=== PATIENT | female | born 1965 | race Caucasian/White ===

== ENCOUNTER 2016-06-11 12:30 | Inpatient (IN) | payer MEDICARE, MEDICAID ==
[2016-06-11] MEDS ORDERED: Sodium Chloride 0.9% 1,000 ML IV ONE (12:38)
--- NOTE | 2016-06-11 12:45 | ED Physician Chart ---
Chief Complaint/HPI - Patient Information Date Seen:: 06/11/16 Time Seen:: 12:31 Chief Complaint:: twitching History of Present Illness:: 51-year-old female with history of intellectual retardation, brought in from care facility with acute, worsening, severe, twitching of the body with seizure- like activity. Has had similar symptoms in the past about one year ago. Takes gabapentin and lamotrigine for seizures. History limited as patient is averbal due to her underlying mental retardation History provided by caregiver Allergies:: Allergies Allergy/AdvReac Type Severity Reaction Status Date / Time cats Allergy UNKNOWN Uncoded 07/15/15 15:20 caraballo tomatoes Allergy UNKNOWN Uncoded 07/15/15 15:20 weeds Allergy UNKNOWN Uncoded 07/15/15 15:20 Historian:: Other (caregiver) Review:: Nurse's Note Reviewed, Transfer documents Reviewed Review of Systems - Review of Systems Other: Complete system review otherwise unremarkable except as noted in HPI. Past Medical History - Past Medical History Past Medical History: Seizures, Other (profound intellectual disability, autism) Family Medical History - Family Member Mother History Unknown: Yes Physical Exam - Physical Examination Other:: INITIAL VITAL SIGNS: Reviewed by me GENERAL: Alert, averbal, intellectually challenged. Moderate distress due to seizure-like activity. HEAD: Head is normocephalic and atraumatic EYES: EOMI. . No scleral icterus. No conjunctival injection ENT: Moist mucous membranes. NECK: Supple. No masses. Full range of motion RESPIRATORY: No tachypnea. Clear breath sounds bilaterally. No wheezing, rales, or rhonchi CV: Regular rate and rhythm. No murmurs, rubs, or gallops ABDOMEN: Soft, non-distended, non-tender. No guarding. No rebound. No masses. EXTREMITIES: No deformity. No cyanosis. No edema. SKIN: Warm and dry. No obvious rashes. NEUROLOGIC: Alert and oriented. Face is symmetric. Speech is normal. Moves all extremities equally. Motor and sensory distally intact. Labs/Radiology/EKG Results - EKG Interpretations Comments:: 12-lead EKG Interpretation by Randolph Yap MD: Sinus tachycardia with ventricular rate of 101 beats per minute Normal axis Normal intervals No acute ST or T wave changes. No obvious STEMI ED Septic Shock - . Is Septic Shock (SBP<90, OR Lactate>4 mmol\L) present?: No Reassessment (Disposition) - Reassessment Reassessment:: Patient has seizure disorder. She's been having increasing seizure activity. No apparent source of infection or reasoning why this would be increasing. At this point in the emergency department we are unable to completely control her seizure activity and also have no apparent reason why this activity would've increased. Just case with Dr. Hackett who will admit the patient for further workup and treatment. Reassessment Condition:: Improved - Diagnosis Diagnosis:: Seizures, status epilepticus - Patient Disposition Discharge/Transfer:: Acute Care w/in this hosp Admitted to:: Telemetry Admitting Medical Physician:: Leighton Hackett Time:: 14:59 Condition at Disposition:: Stable ED Discharge Plan - Patient Disposition Admit/Discharge/Transfer: Acute Care w/in this hosp
[2016-06-11 12:52] LABS: % BASOPHILS 0.1 % (0.0-2.0); % EOSINOPHILS 3.5 % (0.0-5.0); % LYMPHOCYTES 24.1 % (20.0-50.0); % MONOCYTES 9.6 % (2.0-10.0); % NEUTROPHILS 62.7 % (40.0-80.0); HEMATOCRIT 41.5 % (35.0-45.0); HEMOGLOBIN 14.2 gm/dL (11.7-15.5); MEAN CELL VOLUME 99.8 fl (81-100); MEAN CORPUSCULAR HEMOGLOBIN 34.2 pg (27.0-31.0); MEAN CORPUSCULAR HGB CONC 34.3 pg (28.0-36.0); MEAN PLATELET VOLUME 8.5 fl; NEUTROPHILE ABSOLUTE 3.4 Th/cmm (1.8-8.0); PLATELET COUNT 192 Th/cmm (150-400); RED BLOOD COUNT 4.16 Mil/cmm (3.80-5.10); RED CELL DISTRIBUTION WIDTH 12.9 % (11.5-20.0); WHITE BLOOD COUNT 5.4 Th/cmm (4.8-10.8)
[2016-06-11 13:04] LABS: INR 1.01 (0.5-1.4); PROTHROMBIN TIME (TEST) 10.5 SECONDS (9.5-11.5)
[2016-06-11 13:09] LABS: ALB/GLOB RATIO 1.3 (1.0-1.8); ALKALINE PHOSPHATASE 106 U/L (34-104); ANION GAP 9.5 (7.0-16.0); BILIRUBIN,TOTAL 0.4 mg/dL (0.3-1.0); BUN - UREA NITROGEN 32 mg/dL (7-25); CALCIUM SERUM 9.9 mg/dL (8.6-10.3); CARBON DIOXIDE 31.3 mEq/L (21.0-31.0); CHLORIDE 101 mEq/L (98-107); GLUCOSE 87 mg/dL (70-105); POTASSIUM SERUM 3.8 mEq/L (3.5-5.1); SGOT 27 U/L (13-39); SGPT/ALT 24 U/L (7-52); SODIUM SERUM 138 mEq/L (136-145)
[2016-06-11 13:53] LABS: URINE BILIRUBIN NEGATIVE (NEGATIVE); URINE BLOOD SMALL (NEGATIVE); URINE COLOR YELLOW; URINE GLUCOSE (UA) NEGATIVE (NEGATIVE); URINE KETONE NEGATIVE (NEGATIVE); URINE PROTEIN NEGATIVE (NEGATIVE); URINE UROBILINOGEN 0.2 E.U./dL (0.2 - 1.0)
[2016-06-11 13:54] LABS: URINE AMORPHOUS SEDIMENT FEW PHOSPHATES (NONE SEEN); URINE BACTERIA FEW /hpf (NONE SEEN); URINE EPITHELIAL CELLS RARE /lpf (FEW); URINE RBC 0-2 /hpf (0-5); URINE WBC 0-2 /hpf (0-5)
[2016-06-11] MEDS ORDERED: Hydrocodone/APAP 5mg/325mg Tab PO PRN (14:45)
[2016-06-11] MEDS ORDERED: Promethazine DM 6.25/15mg-5mL 5 ML SYR PO PRN (14:45)
[2016-06-11] MEDS: Calcium Carb/Vit D 500 mg/200 U Tab PO SCH (21:08)
[2016-06-11] MEDS: Benztropine 1 MG TAB PO SCH (21:08)
--- NOTE | 2016-06-11 21:39 | Admit Criteria Form ---
Admit Criteria Forms - Admit Criteria Diagnosis: SEIZURE Clinical Indications for Admission to Inpatient Care (Place 'X' for any and all applicable criteria): Admission is indicated for seizure and ANY ONE of the following(1)(2)(3)(4)(5): [ ]I. Inpatient admission required rather than observation care (Also use Seizure: Observation Care Criteria as appropriate) because of ANY ONE of the following: [ ]a) Altered mental status that is severe or persistent [ ]b) New focal neurologic deficit that is severe or persistent [ ]c) Metabolic disorder (eg, hypoglycemia, hyponatremia) that is severe or persistent [ ]d) Recurrent seizure [ ]e) Outpatient antiseizure regimen cannot be established (eg , patient cannot tolerate medication, initiation requires inpatient care) [ ]f) Need for ongoing intravenous infusion of antiseizure medication [ ]g) Cardiac arrhythmias of immediate concern [ ]h) Cerebral bleeding, hydrocephalus, or vasospasm monitoring (14) [ ]i) Increased intracranial pressure or cerebral edema monitoring (15) [ ]j) Other treatment or monitoring requiring inpatient admission [X]II. Status epilepticus [A] or repetitive seizures not controlled with emergent treatment (6)(8) [ ]III. Brain disorder (eg, tumor, edema, and hydrocephalus) that requiring monitoring or intervention available only at inpatient level of care. [ ]IV. Brain insult (eg, severe trauma, stroke, drug toxicity, or withdrawal) that requires monitoring or intervention available only at inpatient level of care (10)(11) Extended stay beyond goal length of stay may be needed for (22) [ ]a) Complications of status epilepticus [ ]b) Refractory status epilepticus [ ]c) Etiology-specific therapy for conditions such as MEDICAL BILLER/CODER infection, head injury,eclampsia, severe metabolic abnormalities, and brain tumor [ ]d) Residual neurologic damage, [ ]e) Initiation of significant change to anticonvulsant treatment [ ]f) Older patients (65 years or older) [ ]g) Patient requiring intubation (eg, to protect airway) The original [facility] [employer] content created by [facility] [employer] has been revised. The portions of the content which have been revised are identified through the use of italic text or in bold, and [facility] [employer] has neither reviewed nor approved the modified material. All other unmodified content is copyright [facility]. Please see references footnoted in the original [facility] edition 2016 Admit Criteria Met?: Yes
[2016-06-12] MEDS: Levothyroxine 0.025 Mg Tab PO SCH (06:43)
[2016-06-12] MEDS: Calcium Carb/Vit D 500 mg/200 U Tab PO SCH ×3 (08:08→21:01)
[2016-06-12] MEDS: Benztropine 1 MG TAB PO SCH ×3 (08:09→21:00)
[2016-06-12] MEDS ORDERED: Multivitamin w/ Minerals Tab PO SCH (09:00)
--- NOTE | 2016-06-12 23:25 | History & Physical ---
HISTORY OF PRESENT ILLNESS: This is a 51-year-old female patient. The patient is known to have history of multiple problems. She came from a care facility with worsening of twitching of the body, seizure-like activity, was admitted for status epilepticus. The patient is known to have history of mental delay. The patient is also known to have history of multiple ____ problems. The patient is on Seroquel, is also on ____ and also on lorazepam, and the patient was seen in the Emergency Room, was admitted and was given Ativan. REVIEW OF SYSTEMS: Difficult to obtain. FAMILY HISTORY: Unremarkable. PHYSICAL EXAMINATION: GENERAL: The patient is alert, nonverbal, intellectually challenged. HEAD: Normal. ENT: Normal. NECK: Supple. Nontender. LUNGS: Clear. CARDIOVASCULAR SYSTEM: S1, S2 heard. ABDOMEN: Soft. Bowel sounds are heard. LABORATORY DATA: EKG showed sinus tachycardia. DIAGNOSES: Seizures, status epilepticus, history of psych disorder, and history of mental delay. PLAN: The patient is being admitted. I will go ahead and continue Ativan and her psych medications, and I will have psychiatrist see the patient and also I will have neurologist, Dr. Cole, see the patient, and I will follow the patient. [facility]# [phone] [id number]
[2016-06-13] MEDS: Levothyroxine 0.025 Mg Tab PO SCH (06:49)
--- NOTE | 2016-06-13 08:29 | General Progress Note ---
Subjective - Review of Systems Service Date: 06/13/16 Subjective: pt is confused agitated no siezures Objective - Results Result Diagrams: 06/11/16 12:40 06/11/16 12:40 Recent Labs: Laboratory Last Values WBC 5.4 Th/cmm (4.8-10.8) 06/11/16 12:40 RBC 4.16 Mil/cmm (3.80-5.10) 06/11/16 12:40 Hgb 14.2 gm/dL (11.7-15.5) 06/11/16 12:40 Hct 41.5 % (35.0-45.0) 06/11/16 12:40 MCV 99.8 fl (81-100) 06/11/16 12:40 MCH 34.2 pg (27.0-31.0) H 06/11/16 12:40 MCHC Differential 34.3 pg (28.0-36.0) 06/11/16 12:40 RDW 12.9 % (11.5-20.0) 06/11/16 12:40 Plt Count 192 Th/cmm (150-400) 06/11/16 12:40 MPV 8.5 fl 06/11/16 12:40 Neutrophils % 62.7 % (40.0-80.0) 06/11/16 12:40 Lymphocytes % 24.1 % (20.0-50.0) 06/11/16 12:40 Monocytes % 9.6 % (2.0-10.0) 06/11/16 12:40 Eosinophils % 3.5 % (0.0-5.0) 06/11/16 12:40 Basophils % 0.1 % (0.0-2.0) 06/11/16 12:40 PT 10.5 SECONDS (9.5-11.5) 06/11/16 12:40 INR 1.01 (0.5-1.4) 06/11/16 12:40 PTT (Actin FS) 22.7 SECONDS (26.0-38.0) L 06/11/16 12:40 Sodium 138 mEq/L (136-145) 06/11/16 12:40 Potassium 3.8 mEq/L (3.5-5.1) 06/11/16 12:40 Chloride 101 mEq/L (98-107) 06/11/16 12:40 Carbon Dioxide 31.3 mEq/L (21.0-31.0) H 06/11/16 12:40 Anion Gap 9.5 (7.0-16.0) 06/11/16 12:40 BUN 32 mg/dL (7-25) H 06/11/16 12:40 Creatinine 1.0 mg/dL (0.6-1.2) 06/11/16 12:40 Est GFR ( Amer) > 60.0 ml/min (>90) 06/11/16 12:40 Est GFR (Non-Af Amer) > 60.0 ml/min 06/11/16 12:40 BUN/Creatinine Ratio 32.0 06/11/16 12:40 Glucose 87 mg/dL (70-105) 06/11/16 12:40 Whole Bld Lactic Acid 0.95 mmol/L (0.60-1.99) 06/11/16 12:40 Calcium 9.9 mg/dL (8.6-10.3) 06/11/16 12:40 Total Bilirubin 0.4 mg/dL (0.3-1.0) 06/11/16 12:40 AST 27 U/L (13-39) 06/11/16 12:40 ALT 24 U/L (7-52) 06/11/16 12:40 Alkaline Phosphatase 106 U/L (34-104) H 06/11/16 12:40 Creatine Kinase 55 U/L (30-223) 06/11/16 12:40 Total Protein 8.1 gm/dL (6.0-8.3) 06/11/16 12:40 Albumin 4.5 gm/dL (3.7-5.3) 06/11/16 12:40 Globulin 3.6 gm/dL 06/11/16 12:40 Albumin/Globulin Ratio 1.3 (1.0-1.8) 06/11/16 12:40 Urine Source CATH 06/11/16 13:00 Urine Color YELLOW 06/11/16 13:00 Urine Clarity HAZY (CLEAR) 06/11/16 13:00 Urine pH 7.0 06/11/16 13:00 Ur Specific Patriot 1.020 (1.005-1.030) 06/11/16 13:00 Urine Protein NEGATIVE mg/dL (NEGATIVE) 06/11/16 13:00 Urine Glucose (UA) NEGATIVE mg/dL (NEGATIVE) 06/11/16 13:00 Urine Ketones NEGATIVE mg/dL (NEGATIVE) 06/11/16 13:00 Urine Blood SMALL (NEGATIVE) H 06/11/16 13:00 Urine Nitrate NEGATIVE (NEGATIVE) 06/11/16 13:00 Urine Bilirubin NEGATIVE (NEGATIVE) 06/11/16 13:00 Urine Urobilinogen 0.2 E.U./dL (0.2 - 1.0) 06/11/16 13:00 Ur Leukocyte Esterase NEGATIVE (NEGATIVE) 06/11/16 13:00 Urine RBC 0-2 /hpf (0-5) 06/11/16 13:00 Urine WBC 0-2 /hpf (0-5) 06/11/16 13:00 Ur Epithelial Cells RARE /lpf (FEW) 06/11/16 13:00 Amorphous Sediment FEW PHOSPHATES (NONE SEEN) 06/11/16 13:00 Urine Bacteria FEW /hpf (NONE SEEN) 06/11/16 13:00 - Physical Exam Vitals and I&O: Vital Signs Temp 98.5 F 06/13/16 04:00 Pulse 65 06/13/16 04:00 Resp 18 06/13/16 04:00 BP 124/74 06/13/16 04:00 Pulse Ox 92 06/13/16 04:00 Intake & Output 06/12/16 06/13/16 06/13/16 18:59 06:59 18:59 Intake Total 400 240 Output Total 0 Balance 400 240 Intake: Oral 400 240 Output: Stool 0 Other: # Voids 7 2 # Bowel Movements 0 Active Medications: Current Medications Acetaminophen (Tylenol) 650 mg PO Q6H PRN PRN Reason: FEVER >100.1 Stop: 08/11/16 23:52 Acetaminophen/Hydrocodone Bitart (Mina 5mg/325mg) 1 tab PO Q4H PRN PRN Reason: PAIN Stop: 08/10/16 14:44 Bacitracin (Baciquent) 1 appl TP DAILY PRN PRN Reason: SKIN INFECTION Stop: 08/10/16 14:44 Benztropine Mesylate (Cogentin) 1 mg PO TID DIPTI Stop: 08/10/16 20:59 Last Admin: 06/12/16 21:00 Dose: 1 mg Betamethasone Dipropionate (Betamethasone Dip 0.05% Cream) 1 appl TP BID PRN PRN Reason: Rash Stop: 08/10/16 14:44 Calcium/Vitamin D (Oscal W/Vitamin D) 1 tab PO TID [facility] Stop: 08/10/16 20:59 Last Admin: 06/12/16 21:01 Dose: 1 tab Chlorpromazine (Thorazine) 25 mg PO BID DIPTI PRN Reason: Protocol Stop: 08/10/16 16:59 Clotrimazole (Lotrimin 1% Cream) 1 appl TP BID PRN PRN Reason: SKIN INFECTION Stop: 08/10/16 14:44 Desmopressin Acetate (Ddavp) 0.2 mg PO TID DIPTI Stop: 08/10/16 20:59 Last Admin: 06/12/16 21:02 Dose: 0.2 mg Diphenhydramine HCl (Benadryl) 100 mg PO QPM DIPTI Stop: 08/10/16 16:59 Last Admin: 06/11/16 17:38 Dose: Not Given Fluvoxamine Maleate (Luvox) 100 mg PO QPM DIPTI Stop: 08/10/16 16:59 Gabapentin (Neurontin) 800 mg PO TID [facility] Stop: 08/10/16 20:59 Last Admin: 06/12/16 21:03 Dose: 800 mg Lamotrigine (Lamictal) 200 mg PO BID [facility] Stop: 08/10/16 16:59 Last Admin: 06/12/16 16:19 Dose: 200 mg Levothyroxine Sodium (Synthroid) 0.025 mg PO QDAC [facility] Stop: 08/11/16 07:29 Last Admin: 06/13/16 06:49 Dose: 0.025 mg Loperamide HCl (Imodium) 2 mg PO Q2H PRN PRN Reason: Loose Stools Stop: 08/10/16 14:44 Lorazepam (Ativan) 1 mg IVP Q4HR PRN; Protocol PRN Reason: Seizure Stop: 08/10/16 14:43 Last Admin: 06/12/16 03:02 Dose: 1 mg Lorazepam (Ativan) 1 mg PO HS PRN; Protocol PRN Reason: Anxiety Stop: 08/11/16 23:48 Promethazine HCl/Dextromethorphan (Phenergan Dm 6.25/15mg-5 Ml) 5 ml PO BID PRN PRN Reason: Cough Stop: 08/10/16 14:44 Quetiapine Fumarate (Seroquel) 200 mg PO BID DIPTI PRN Reason: Protocol Stop: 08/10/16 16:59 Quetiapine Fumarate (Seroquel) 800 mg PO QPM DIPTI PRN Reason: Protocol Stop: 08/10/16 16:59 Vitamin E (Vitamin E) 400 iu PO BID [facility] Stop: 08/10/16 16:59 Last Admin: 06/12/16 16:18 Dose: 400 iu General: No acute distress HEENT: Atraumatic Neck: Supple Cardiovascular: Regular rate Lungs: Clear to auscultation Abdomen: Bowel sounds, Distended - Procedures Procedures: Procedures Procedure Code Date CLOSURE SKIN & SUBCUTANEOUS NEC 86.59 09/08/10 RPR F/E/E/N/L/M 2.5 CM/< 78022 09/08/10 Assessment/Plan - Problem List Patient Problems: All Active Problems INTERMITTANT FOCAL SEIZURES (Acute) Cerebral palsy (Acute) G80.9 Hyponatremia (Acute) E87.1 Seizure disorder (Acute) G40.909 Twitching (Acute) R25.3 - Plan Plan: monitor vitals/diet as per nuerologist
[2016-06-13] MEDS: Calcium Carb/Vit D 500 mg/200 U Tab PO SCH ×2 (09:42→13:55)
[2016-06-13] MEDS: Multivitamin w/ Minerals Tab PO SCH (09:43)
[2016-06-13] MEDS: Benztropine 1 MG TAB PO SCH ×2 (09:43→13:55)
--- NOTE | 2016-06-13 11:31 | History & Physical ---
HISTORY OF PRESENT ILLNESS: This 51-year-old female. The patient admitted with question of possible seizure. The patient has no seizures today. The patient is awake, alert. She gets agitated. She took her IV out. PAST MEDICAL HISTORY: Developmental delay. The patient has seizures. The patient essentially nonverbal, not able to give any history and a history of psychiatric disorder. MEDICATIONS: As per reconciliation. Here, the patient is on hydrocodone, benztropine, Thorazine, Benadryl, gabapentin 800 t.i.d., meclizine, lamotrigine 200 b.i.d., lorazepam, Seroquel 200 b.i.d. plus 800 at night, vitamin E. SOCIAL HISTORY: Lives in a facility. PHYSICAL EXAMINATION: VITAL SIGNS: Temperature 98.6, blood pressure 150/89, pulse is around 93. NECK: Supple, no bruits. HEART: Sounds S1, S2. LUNGS: Clear. ABDOMEN: Soft. NEUROLOGIC: The patient awake. She will ____. She will squeeze with right and left hand. Nonverbal. Pupils react. She is moving both upper and lower extremities. Reflex about 2+ in upper extremities. Knees are about 2+ to 3. LABORATORY DATA: WBC 5.4, hemoglobin 14.2, INR 1.01, BUN is 32, calcium is okay. Sodium, potassium okay. IMPRESSION: 1. Seizures. 2. Mental retardation. 3. Abnormal behavior. MANAGEMENT: The patient will continue present seizure medications. The patient on high doses of antipsychotic medications. I will recommend psychiatric evaluation. [facility]# [id number]
[2016-06-14] MEDS: Calcium Carb/Vit D 500 mg/200 U Tab PO SCH ×3 (01:22→13:52)
[2016-06-14] MEDS: Benztropine 1 MG TAB PO SCH ×3 (01:23→13:52)
[2016-06-14] MEDS: Multivitamin w/ Minerals Tab PO SCH (08:40)
[2016-06-14] MEDS: Levothyroxine 0.025 Mg Tab PO SCH (08:40)
--- NOTE | 2016-06-14 14:29 | General Progress Note ---
Subjective - Review of Systems Service Date: 06/14/16 Subjective: pt is confused agitated no siezures Objective - Results Result Diagrams: 06/11/16 12:40 06/11/16 12:40 Recent Labs: Laboratory Last Values WBC 5.4 Th/cmm (4.8-10.8) 06/11/16 12:40 RBC 4.16 Mil/cmm (3.80-5.10) 06/11/16 12:40 Hgb 14.2 gm/dL (11.7-15.5) 06/11/16 12:40 Hct 41.5 % (35.0-45.0) 06/11/16 12:40 MCV 99.8 fl (81-100) 06/11/16 12:40 MCH 34.2 pg (27.0-31.0) H 06/11/16 12:40 MCHC Differential 34.3 pg (28.0-36.0) 06/11/16 12:40 RDW 12.9 % (11.5-20.0) 06/11/16 12:40 Plt Count 192 Th/cmm (150-400) 06/11/16 12:40 MPV 8.5 fl 06/11/16 12:40 Neutrophils % 62.7 % (40.0-80.0) 06/11/16 12:40 Lymphocytes % 24.1 % (20.0-50.0) 06/11/16 12:40 Monocytes % 9.6 % (2.0-10.0) 06/11/16 12:40 Eosinophils % 3.5 % (0.0-5.0) 06/11/16 12:40 Basophils % 0.1 % (0.0-2.0) 06/11/16 12:40 PT 10.5 SECONDS (9.5-11.5) 06/11/16 12:40 INR 1.01 (0.5-1.4) 06/11/16 12:40 PTT (Actin FS) 22.7 SECONDS (26.0-38.0) L 06/11/16 12:40 Sodium 138 mEq/L (136-145) 06/11/16 12:40 Potassium 3.8 mEq/L (3.5-5.1) 06/11/16 12:40 Chloride 101 mEq/L (98-107) 06/11/16 12:40 Carbon Dioxide 31.3 mEq/L (21.0-31.0) H 06/11/16 12:40 Anion Gap 9.5 (7.0-16.0) 06/11/16 12:40 BUN 32 mg/dL (7-25) H 06/11/16 12:40 Creatinine 1.0 mg/dL (0.6-1.2) 06/11/16 12:40 Est GFR ( Amer) > 60.0 ml/min (>90) 06/11/16 12:40 Est GFR (Non-Af Amer) > 60.0 ml/min 06/11/16 12:40 BUN/Creatinine Ratio 32.0 06/11/16 12:40 Glucose 87 mg/dL (70-105) 06/11/16 12:40 Whole Bld Lactic Acid 0.95 mmol/L (0.60-1.99) 06/11/16 12:40 Calcium 9.9 mg/dL (8.6-10.3) 06/11/16 12:40 Total Bilirubin 0.4 mg/dL (0.3-1.0) 06/11/16 12:40 AST 27 U/L (13-39) 06/11/16 12:40 ALT 24 U/L (7-52) 06/11/16 12:40 Alkaline Phosphatase 106 U/L (34-104) H 06/11/16 12:40 Creatine Kinase 55 U/L (30-223) 06/11/16 12:40 Total Protein 8.1 gm/dL (6.0-8.3) 06/11/16 12:40 Albumin 4.5 gm/dL (3.7-5.3) 06/11/16 12:40 Globulin 3.6 gm/dL 06/11/16 12:40 Albumin/Globulin Ratio 1.3 (1.0-1.8) 06/11/16 12:40 Urine Source CATH 06/11/16 13:00 Urine Color YELLOW 06/11/16 13:00 Urine Clarity HAZY (CLEAR) 06/11/16 13:00 Urine pH 7.0 06/11/16 13:00 Ur Specific [place] 1.020 (1.005-1.030) 06/11/16 13:00 Urine Protein NEGATIVE mg/dL (NEGATIVE) 06/11/16 13:00 Urine Glucose (UA) NEGATIVE mg/dL (NEGATIVE) 06/11/16 13:00 Urine Ketones NEGATIVE mg/dL (NEGATIVE) 06/11/16 13:00 Urine Blood SMALL (NEGATIVE) H 06/11/16 13:00 Urine Nitrate NEGATIVE (NEGATIVE) 06/11/16 13:00 Urine Bilirubin NEGATIVE (NEGATIVE) 06/11/16 13:00 Urine Urobilinogen 0.2 E.U./dL (0.2 - 1.0) 06/11/16 13:00 Ur Leukocyte Esterase NEGATIVE (NEGATIVE) 06/11/16 13:00 Urine RBC 0-2 /hpf (0-5) 06/11/16 13:00 Urine WBC 0-2 /hpf (0-5) 06/11/16 13:00 Ur Epithelial Cells RARE /lpf (FEW) 06/11/16 13:00 Amorphous Sediment FEW PHOSPHATES (NONE SEEN) 06/11/16 13:00 Urine Bacteria FEW /hpf (NONE SEEN) 06/11/16 13:00 - Physical Exam Vitals and I&O: Vital Signs Temp 97.5 F 06/14/16 08:00 Pulse 104 06/14/16 08:00 Resp 18 06/14/16 08:00 BP 113/80 06/14/16 08:00 Pulse Ox 93 06/14/16 08:00 Intake & Output 06/13/16 06/14/16 06/14/16 18:59 06:59 18:59 Intake Total 1080 Balance 1080 Intake: Oral 1080 Other: # Voids 5 # Bowel Movements 1 Active Medications: Current Medications Acetaminophen (Tylenol) 650 mg PO Q6H PRN PRN Reason: FEVER >100.1 Stop: 08/11/16 23:52 Last Admin: 06/13/16 16:46 Dose: 650 mg Acetaminophen/Hydrocodone Bitart ([place] 5mg/325mg) 1 tab PO Q4H PRN PRN Reason: PAIN Stop: 08/10/16 14:44 Bacitracin (Baciquent) 1 appl TP DAILY PRN PRN Reason: SKIN INFECTION Stop: 08/10/16 14:44 Benztropine Mesylate (Cogentin) 1 mg PO TID DIPTI Stop: 08/10/16 20:59 Last Admin: 06/14/16 13:52 Dose: 1 mg Betamethasone Dipropionate (Betamethasone Dip 0.05% Cream) 1 appl TP BID PRN PRN Reason: Rash Stop: 08/10/16 14:44 Last Admin: 06/14/16 08:42 Dose: 1 appl Calcium/Vitamin D (Oscal W/Vitamin D) 1 tab PO TID [facility] Stop: 08/10/16 20:59 Last Admin: 06/14/16 13:52 Dose: 1 tab Chlorpromazine (Thorazine) 25 mg PO BID DIPTI PRN Reason: Protocol Stop: 08/10/16 16:59 Last Admin: 06/14/16 08:41 Dose: 25 mg Clotrimazole (Lotrimin 1% Cream) 1 appl TP BID PRN PRN Reason: SKIN INFECTION Stop: 08/10/16 14:44 Desmopressin Acetate (Ddavp) 0.2 mg PO TID [facility] Stop: 08/10/16 20:59 Last Admin: 06/14/16 13:52 Dose: 0.2 mg Diphenhydramine HCl (Benadryl) 100 mg PO QPM@2100 [facility] Stop: 08/12/16 20:59 Last Admin: 06/14/16 01:23 Dose: 100 mg Fluvoxamine Maleate (Luvox) 100 mg PO QPM DIPTI Stop: 08/10/16 16:59 Last Admin: 06/13/16 16:45 Dose: 100 mg Gabapentin (Neurontin) 800 mg PO TID [facility] Stop: 08/10/16 20:59 Last Admin: 06/14/16 13:52 Dose: 800 mg Lamotrigine (Lamictal) 200 mg PO BID [facility] Stop: 08/10/16 16:59 Last Admin: 06/14/16 08:40 Dose: 200 mg Levothyroxine Sodium (Synthroid) 0.025 mg PO QDAC [facility] Stop: 08/11/16 07:29 Last Admin: 06/14/16 08:40 Dose: 0.025 mg Loperamide HCl (Imodium) 2 mg PO Q2H PRN PRN Reason: Loose Stools Stop: 08/10/16 14:44 Lorazepam (Ativan) 1 mg IVP Q4HR PRN; Protocol PRN Reason: Seizure Stop: 08/10/16 14:43 Last Admin: 06/12/16 03:02 Dose: 1 mg Lorazepam (Ativan) 1 mg PO HS PRN; Protocol PRN Reason: Anxiety Stop: 08/11/16 23:48 Promethazine HCl/Dextromethorphan (Phenergan Dm 6.25/15mg-5 Ml) 5 ml PO BID PRN PRN Reason: Cough Stop: 08/10/16 14:44 Quetiapine Fumarate (Seroquel) 200 mg PO BID DIPTI PRN Reason: Protocol Stop: 08/10/16 16:59 Last Admin: 06/14/16 08:41 Dose: 200 mg Quetiapine Fumarate (Seroquel) 800 mg PO QPM DIPTI PRN Reason: Protocol Stop: 08/10/16 16:59 Vitamin E (Vitamin E) 400 iu PO BID DIPTI Stop: 08/10/16 16:59 Last Admin: 06/14/16 08:40 Dose: 400 iu General: No acute distress HEENT: Atraumatic Neck: Supple Cardiovascular: Regular rate Abdomen: Bowel sounds - Procedures Procedures: Procedures Procedure Code Date CLOSURE SKIN & SUBCUTANEOUS NEC 86.59 09/08/10 RPR F/E/E/N/L/M 2.5 CM/< 62921 09/08/10 Assessment/Plan - Problem List Patient Problems: All Active Problems INTERMITTANT FOCAL SEIZURES (Acute) Cerebral palsy (Acute) G80.9 Hyponatremia (Acute) E87.1 Seizure disorder (Acute) G40.909 Twitching (Acute) R25.3 - Plan Plan: monitor vitals/diet labs f/up consultants Nutritional Asmnt/Malnutr-PDOC - Dietary Evaluation Malnutrition Findings (Please click <Entered> for more info): Nutritional Asmnt/Malnutrition Start: 06/13/16 15: 36 Text: Status: Complete Freq: Document 06/13/16 15:36 [facility] (Rec: 06/13/16 15:44 [facility] [id number]) Nutritional Asmnt/Malnutrition Patient General Information Nutritional Screening Consult Diagnosis Seizures, status epilepticus Pertinent Medical Hx/Surgical Hx Developmental delay, seizures Subjective Information Nutrition Consult for wound received and completed. Pt is a 51-year-old female admitted with chief complaint of worsening of twitching of the body. Pt is a poor historian and nonverbal. Pt appears well nourished with no muscle or fat depletion assessed. Sunken temporals observed but no malnutrition physical manifestations. Pt has teeth intact. Pt has a good appetite with PO intake of 60-100% today. Pt requires feeding assistance. RD weighed pt's wt via bedscale, consistent with EMR. Current Diet Order/ Nutrition Support Regular Patient / S.O Not Indicated Pertinent Medications Oscal with Vitamin D, Seroquel , Vitamin E Pertinent Labs (06/11) BUN 32H, Alkaline Phosphatase 106H Nutritional Hx/Data Height 1.6 m Height (Calculated Centimeters) 160.0 Current Weight (lbs) 61.054 kg Weight (Calculated Kilograms) 61.1 Weight (Calculated Grams) 43809.5 [place] Body Weight 115 % Iselin Body Weight 117 Weight Status Approriate GI Symptoms GI Symptoms None Food Allergies Yes Cultural/Ethnic/Cheondoism Belief No cultural or scientologist beliefs obtained. Skin Integrity/Comment: Walter 16. Wound to right index finger, per Wound RN notes. Current %PO Fair (50-74%) Estimated Nutritional Goals BEE in Kcals: Using Current wt Calories/Kcals/Kg Based on CBW 61.2 kg Kcals Calculated 4444-1945 kcals/day (25-30 kcals/kg) Protein: Using Current wt Protein g/kg: Based on CBW 61.2 kg with consideration of wound Protein Calculated 61-67 gm/day (1-1.1 gm/kg) Fluid: ml 5291-6178 ml/day (30-35 ml/kg) Nutritional Problem 1. Problem Problem Inability to manage self care related to Etiology developmental delay as evidenced by Signs/Symptoms: pt requires feeding assistance at all meals. Malnutrition Alert Is there a minimum of two criteria No selected? Query Text:Check all the applicable criteria. A minimum of two criteria are recommended for diagnosis of either severe or non-severe malnutrition. Malnutrition Related to Morbid Obesity Malnutrition related to morbid obesity No Intervention/Recommendation Comments 1. Continue with current diet as it is adequate to meet estimated nutritional needs for wt maintenance and wound healing. 2. 100% feeding assistance at all meals. Expected Outcomes/Goals Expected Outcomes/Goals Have pt meet at least 75% of estimated nutritional needs through feeding assistance. Physician Parameters for PEM Body Mass Index (BMI) 19 - 24 (Normal) Serum Albumin (g/dl) 3.5 - 5.0 (Normal) 06/13/16 15:44 Dietitian Notes by Liliana Swain Nutrition Note Nutrition Consult and Initial Nutrition Assessment completed by Liliana Swain on . Please refer to nutrition assessment under Patient Care tab of EMR. Nutrition Interventions: 1. Continue with current diet as it is adequate to meet estimated nutritional needs for wt maintenance and wound healing. 2. 100% feeding assistance at all meals. F/U in 3-5 days as Moderate risk, 06/16-06/18. Initialized on 06/13/16 15:44 - END OF NOTE
--- NOTE | 2016-06-18 19:36 | Discharge Summary ---
HOSPITAL COURSE: The patient was admitted from a [facility] to the Emergency Room with a chief complaint of increased twitching and seizure-like mannerism. From the Emergency Room, the patient was admitted to the Med/Surg floor with diagnosis of seizure status epilepticus. Then, Neurology consultation was done. Medication adjustment was also done for the patient to control her seizure and afterwards, the patient was discharged to [facility] with discharge diagnosis of seizure status epilepticus, mental retardation. DISCHARGE INSTRUCTIONS: To follow up with the primary care provider. JOB# [id number]
--- NOTE | 2016-06-18 21:20 | Discharge Summary ---
This is a 51-year-old female known to have history of multiple ____ medical problems including history of seizure, history of psych disorder, history of mental delay, and the patient . The patient was seen by Dr. Cole, and he adjusted the medication. The patient improved. The patient was in stable condition on 06/14/2016 and sent back to the [facility] care where she came from. I will be following the patient. JOB# [id number]
== END 2016-06-14 16:20 | DRG 101 ==
LOC: ER 12:30 → MSI 15:00
PROVIDERS: ADMIT Internal Medicine; ATTEND Internal Medicine
DX: G40.901 Epilepsy, unspecified, not intractable, with status epilepticus (principal); E87.1 Hypo-osmolality and hyponatremia; G80.9 Cerebral palsy, unspecified; F29 Unspecified psychosis not due to a substance or known physiological condition; F79 Unspecified intellectual disabilities; Z91.018 Allergy to other foods; Z91.09 Other allergy status, other than to drugs and biological substances
CPT/HCPCS: 36415-UA; 80053-TC; 81001-TC; 82550-TC; 83605; 85025-TC; 85610-TC; 85730-TC; 93005; 96374; J2060; J7030; J7042; Q0161; Z7610

== ENCOUNTER 2016-06-25 19:22 | Inpatient (IN) | payer MEDICARE, MEDICAID ==
[2016-06-25] MEDS ORDERED: Haloperidol Lactate 5 mg/mL 1mL Vial IM STA (19:53)
[2016-06-25] MEDS ORDERED: Haloperidol Lactate 5 mg/mL 1mL Vial ONE (20:07)
--- NOTE | 2016-06-25 21:29 | ED Physician Chart ---
Chief Complaint/HPI - Patient Information Date Seen:: 06/25/16 Time Seen:: 19:50 Chief Complaint:: UNCOOPERATIVE History of Present Illness:: THIS IS A CHRONICALLY ILL RETARDED 51 YO FEMALE WHO IS COMBATIVE AND UNCOOPERATIVE REQUIRING SEDATION TO EXAMINE HER. SHE NON VERBAL AND NO HPI OR REVIEW OF SYSTEMS CAN BE OBTAINED EXCEPT FROM THE RECORDS SENT WITH HER FROM THE [facility]. SHE WAS SENT HERE BECAUSE OF WEAKNESS. Allergies:: Allergies Allergy/AdvReac Type Severity Reaction Status Date / Time cats Allergy Unknown UNKNOWN Uncoded 06/25/16 19:53 caraballo tomatoes Allergy Unknown UNKNOWN Uncoded 06/25/16 19:53 weeds Allergy Unknown UNKNOWN Uncoded 06/25/16 19:53 Historian:: EMS, Medical Records Review:: Nurse's Note Reviewed, Old Chart Reviewed, Transfer documents Reviewed , Patient unable to respond Review of Systems - Review of Systems General/Constitutional: No fever, No chills, No weight loss, No weakness, No diaphoresis, No edema, No loss of appetite, Other (PT NOT ABLE TO RESPOND) Skin: No skin lesions, No rash, No bruising Head: No headache, No light-headedness Eyes: No loss of vision, No pain, No diplopia ENT: No earache, No nasal drainage, No sore throat, No tinnitus Neck: No neck pain, No swelling, No thyromegaly, No stiffness, No mass noted Cardio Vascular: No chest pain, No palpitations, No PND, No orthopnea, No edema Pulmonary: No SOB, No cough, No sputum, No wheezing GI: No nausea, No vomiting, No diarrhea, No pain, No melena, No hematochezia, No constipation, No hematemesis G/U: No dysuria, No frequency, No hematuria Musculoskeletal: No bone or joint pain, No back pain, No muscle pain Endocrine: No polyuria, No polydipsia Psychiatric: No prior psych history, No depression, No anxiety, No suicidal ideation Hematopoietic: No bruising, No lymphadenopathy Allergic/Immuno: No urticaria, No angioedema Neurological: No syncope, No focal symptoms, No weakness, No paresthesia, No headache, No seizure, No dizziness, No confusion, No vertigo Past Medical History - Past Medical History Obtainable: No Past Medical History: Seizures, Thyroid disorder, Dementia Family History: Other (UNKNOWN) Social History: Non Smoker, No Alcohol, No Drug Use Surgical History: other (UNKNOWN) Family Medical History - Family Member Mother History Unknown: Yes Physical Exam - Physical Examination General/Constitutional: Awake, Well-developed, well-nourished, Alert, No distress, GCS 15, Non-toxic appearing, Ambulatory Other Gen/Cons comments:: COMBATIVE AND HITTING WITH NO COMMUNICATION AT THIS TIME. Head: Atraumatic Eyes: Lids, conjuctiva normal, PERRL, EOMI Skin: Nl inspection, No rash, No skin lesions, No ecchymosis, Well hydrated, No lymphadenopathy ENMT: External ears, nose nl, Nasal exam nl, Lips, teeth, gums nl Neck: Nontender, Full ROM w/o pain, No JVD, No nuchal rigidity, No bruit, No mass, No stridor Respiratory: Nl effort/Exclusion, Clear to Auscultation, No Wheeze/Rhonchi/Rales Cardio Vascular: RRR, No murmur, gallop, rubs, NL S1 S2 GI: No tenderness/rebounding/guarding, No organomegaly, No hernia, Normal BS's, Nondistended, No mass/bruits, No McBurney tenderness : No CVA tenderness Extremities: No tenderness or effusion, Full ROM, normal strength in all extremities, No edema, Normal digits & nails Neuro/Psych: Alert/oriented, DTR's symmetric, Normal sensory exam, Normal motor strength, Judgement/insight normal (NO JUDGEMENT OR INSIGHT), Normal gait, No focal deficits Misc: normal gait, Normal back, No paraspinal tenderness Labs/Radiology/EKG Results - Lab Results Results: Abnormal Lab Results 06/25/16 06/25/16 06/25/16 21:50 21:50 21:50 WBC 5.3 RBC 3.64 L Hgb 12.5 Hct 36.5 D MCV 100.3 H MCH 34.3 H MCHC Differential 34.2 RDW 12.8 Plt Count 181 MPV 8.0 Neutrophils % 59.1 Lymphocytes % 28.1 Monocytes % 9.1 Eosinophils % 3.6 Basophils % 0.1 Sodium 136 Potassium 3.4 L Chloride 106 Carbon Dioxide 30.6 Anion Gap 2.8 L BUN 33 H Creatinine 0.8 Est GFR ( Amer) > 60.0 Est GFR (Non-Af Amer) > 60.0 BUN/Creatinine Ratio 41.3 Glucose 116 H Calcium 9.1 Total Bilirubin 0.3 AST 29 ALT 27 Alkaline Phosphatase 83 Troponin I < 0.01 L Total Protein 6.6 Albumin 3.7 Globulin 2.9 Albumin/Globulin Ratio 1.3 - Radiology Results Results: CHEST X-RAY = NAD SEEN, NORMAL HEART SIZE, NO FX RIBS SEEN. - EKG Interpretations EKG Time:: 20:33 Rhythm: SINUS TACHYCARDIA [place]: LEFT Rate: 112 Comments:: THERE IS A LEFT ANTERIOR FASCICULAR BLOCK, NO PVC'S SEEN. ED Septic Shock - . Is Septic Shock (SBP<90, OR Lactate>4 mmol\L) present?: No Reassessment (Disposition) - Reassessment Reassessment Condition:: Unchanged - Diagnosis Diagnosis:: PSYCHOSIS RETARDATION - Patient Disposition Discharge/Transfer:: Acute Care w/in this hosp Admitted to:: Med/Surg Condition at Disposition:: Unchanged
[2016-06-25 22:02] LABS: % BASOPHILS 0.1 % (0.0-2.0); % EOSINOPHILS 3.6 % (0.0-5.0); % LYMPHOCYTES 28.1 % (20.0-50.0); % MONOCYTES 9.1 % (2.0-10.0); % NEUTROPHILS 59.1 % (40.0-80.0); HEMOGLOBIN 12.5 gm/dL (11.7-15.5); MEAN CELL VOLUME 100.3 fl (81-100); MEAN CORPUSCULAR HEMOGLOBIN 34.3 pg (27.0-31.0); MEAN CORPUSCULAR HGB CONC 34.2 pg (28.0-36.0); NEUTROPHILE ABSOLUTE 3.1 Th/cmm (1.8-8.0); PLATELET COUNT 181 Th/cmm (150-400); RED BLOOD COUNT 3.64 Mil/cmm (3.80-5.10); RED CELL DISTRIBUTION WIDTH 12.8 % (11.5-20.0); WHITE BLOOD COUNT 5.3 Th/cmm (4.8-10.8)
[2016-06-25 22:08] LABS: HEMATOCRIT 36.5 % (35.0-45.0)
[2016-06-25 22:17] LABS: ALB/GLOB RATIO 1.3 (1.0-1.8); ALKALINE PHOSPHATASE 83 U/L (34-104); ANION GAP 2.8 (7.0-16.0); BILIRUBIN,TOTAL 0.3 mg/dL (0.3-1.0); BUN - UREA NITROGEN 33 mg/dL (7-25); BUN/CREATININE RATIO 41.3; CALCIUM SERUM 9.1 mg/dL (8.6-10.3); CARBON DIOXIDE 30.6 mEq/L (21.0-31.0); CHLORIDE 106 mEq/L (98-107); CREATININE - SERUM 0.8 mg/dL (0.6-1.2); GLUCOSE 116 mg/dL (70-105); POTASSIUM SERUM 3.4 mEq/L (3.5-5.1); SGOT 29 U/L (13-39); SGPT/ALT 27 U/L (7-52); SODIUM SERUM 136 mEq/L (136-145)
[2016-06-25] MEDS ORDERED: D5-0.45NS w/20 mEq KCL 1,000 ML IV ONE (22:36)
[2016-06-26 01:20] LABS: URINE BILIRUBIN NEGATIVE (NEGATIVE); URINE BLOOD NEGATIVE (NEGATIVE); URINE COLOR YELLOW; URINE GLUCOSE (UA) NEGATIVE (NEGATIVE); URINE KETONE NEGATIVE (NEGATIVE); URINE PROTEIN NEGATIVE (NEGATIVE)
[2016-06-26 01:21] LABS: URINE BACTERIA MANY /hpf (NONE SEEN); URINE EPITHELIAL CELLS FEW /lpf (FEW); URINE RBC NONE SEEN /hpf (0-5)
[2016-06-26] MEDS ORDERED: Sodium Chloride 0.9% 1,000 ML IV SCH (01:45)
[2016-06-26 02:43] VITALS: BP 121/77
[2016-06-26] MEDS ORDERED: D5-0.9%NS 1,000 ML IV SCH (08:45)
[2016-06-26] MEDS ORDERED: LAMOTRIGINE 200 MG PO SCH (09:00)
[2016-06-26] MEDS ORDERED: CHOLECALCIFEROL PO SCH (09:00)
[2016-06-26] MEDS ORDERED: DESMOPRESSIN ACETATE 0.1 MG PO SCH (09:00)
[2016-06-26] MEDS ORDERED: CALCIUM PO SCH (09:00)
[2016-06-26] MEDS ORDERED: VITAMIN E PO SCH (09:00)
[2016-06-26] MEDS ORDERED: LACTULOSE PO SCH (09:00)
[2016-06-26] MEDS ORDERED: GABAPENTIN 800 MG PO SCH (09:00)
[2016-06-26] MEDS: Benztropine 1 MG TAB PO SCH ×3 (09:09→21:41)
[2016-06-26] MEDS: Multivitamin w/ Minerals Tab PO SCH (09:09)
--- NOTE | 2016-06-26 09:27 | Diagnostic Imaging Report ---
Portable chest x-ray HISTORY: Pain Prior exams are not available for comparison. The exam is extremely limited and suboptimal due to patient combativeness and suboptimal positioning. There is a very poor inspiration. Heart size difficult to assess. No obvious focal pulmonary processes. Somewhat dilated air-filled large bowel noted. IMPRESSION: 1. Extremely Limited/suboptimal exam 2. No obvious acute focal pulmonary parenchymal processes
--- NOTE | 2016-06-26 10:47 | Admit Criteria Form ---
Admit Criteria Forms - Admit Criteria Diagnosis: MENTAL STATUS CHANGE Clinical Indications for Inpatient Care (Place 'X' for any and all applicable criteria): Ongoing inpatient care may be needed for ANY ONE of the following(1)(2)(3)(5)(6) : [ ]I. Suspected serious etiology (eg, medical disorder, RESPITE PROVIDER event) of mental status change [ ]II. Danger to self or others not manageable at lower level of care [ ]III. Grave disability (eg, inability to perform self care necessary at lower level of care) [X ]IV. Agitation or inappropriate behavior interfering with care for primary condition (eg, attempting to discontinue lines or drains prematurely, unable to cooperate with respiratory care) [ ]V. Delirium [A] [D][E] as described by ANY ONE of the following(26): [ ]a) Delirium due to alcohol or sedative [F] withdrawal [ ]b) Delirium of uncertain etiology that has not responded to appropriate empiric treatment [ ]c) Delirium that prevents performance of a life-sustaining function (eg, feeding or hydrating oneself) [ ]. General contraindications and/or Inappropriate clinical situations for Observational Care in patients with Mental Status Change, when ANY ONE of the following is required: [ ]a) Prediction of prolongation of LOS based on ANY ONE of the following may be considered as a contraindication for observational care 2, 3, 4, 5, 6, 7, 8, 9, 10, 11 [ ]i) Age > 65 yrs. [ ]ii) Patient arriving by ambulance [ ]iii) Patient with high acuity [ ]iv) Patient requiring vital sign monitoring [ ]v) Patient on IV medication [ ]b) Systolic blood pressures 180mmHg 3,12 [ ]c) Patient with altered mental status including delirium and other alteration of consciousness, (3) [ ]d) Patient whose discharge disposition will be to a fci home or rehabilitation home should not be managed in Emergency Department Observation Unit. CMS rule requires 3 days hospital stay before such placement.3,13 [ ]e) Patient with failure to thrive due to broad array of etiologies 3,16,17 [ ]f) Inability to ambulate 3,14 Extended stay beyond goal length of stay for the primary condition may be needed until ALL of the following are present(3)(5): [ ]a) Underlying medical etiology of mental status change is absent, or has been established and adequately treated [ ]b) Danger to self or others is absent or manageable at lower level of care. [ ]c) Behavior crisis management, including physical or chemical restraints, is not required or available at lower level of car [ ]d) Substance or alcohol withdrawal is absent or manageable at lower level of care. [ ]e) Behavioral symptoms (eg, agitation, somnolence, inappropriate behavior) are absent, or are manageable at lower level of care. The original [facility] content created by [facility] has been revised. The portions of the content which have been revised are identified through the use of italic text or in bold, and [facility] has neither reviewed nor approved the modified material. All other unmodified content is copyright [facility]. Please see references footnoted in the original [facility] edition 2016 Admit Criteria Met?: Yes
[2016-06-26] MEDS: cefTRIAXone 1 GM in Sodium Chloride 0.9% 50 ML IV SCH (11:09)
[2016-06-26] MEDS: D5-0.9NS w/KCL 20mEq 1,000 ML IV SCH (11:21)
[2016-06-26] MEDS: Lactulose 10 Gm/15 mL 30mL UDC PO SCH (18:00)
[2016-06-26] MEDS ORDERED: FLUVOXAMINE MALEATE 100 MG PO SCH (21:00)
--- NOTE | 2016-06-26 21:27 | General Progress Note ---
Subjective - Review of Systems Service Date: 06/26/16 Objective - Results Result Diagrams: 06/25/16 21:50 06/25/16 21:50 Recent Labs: Laboratory Last Values WBC 5.3 Th/cmm (4.8-10.8) 06/25/16 21:50 RBC 3.64 Mil/cmm (3.80-5.10) L 06/25/16 21:50 Hgb 12.5 gm/dL (11.7-15.5) 06/25/16 21:50 Hct 36.5 % (35.0-45.0) D 06/25/16 21:50 MCV 100.3 fl (81-100) H 06/25/16 21:50 MCH 34.3 pg (27.0-31.0) H 06/25/16 21:50 MCHC Differential 34.2 pg (28.0-36.0) 06/25/16 21:50 RDW 12.8 % (11.5-20.0) 06/25/16 21:50 Plt Count 181 Th/cmm (150-400) 06/25/16 21:50 MPV 8.0 fl 06/25/16 21:50 Neutrophils % 59.1 % (40.0-80.0) 06/25/16 21:50 Lymphocytes % 28.1 % (20.0-50.0) 06/25/16 21:50 Monocytes % 9.1 % (2.0-10.0) 06/25/16 21:50 Eosinophils % 3.6 % (0.0-5.0) 06/25/16 21:50 Basophils % 0.1 % (0.0-2.0) 06/25/16 21:50 Sodium 136 mEq/L (136-145) 06/25/16 21:50 Potassium 3.4 mEq/L (3.5-5.1) L 06/25/16 21:50 Chloride 106 mEq/L (98-107) 06/25/16 21:50 Carbon Dioxide 30.6 mEq/L (21.0-31.0) 06/25/16 21:50 Anion Gap 2.8 (7.0-16.0) L 06/25/16 21:50 BUN 33 mg/dL (7-25) H 06/25/16 21:50 Creatinine 0.8 mg/dL (0.6-1.2) 06/25/16 21:50 Est GFR ( Amer) > 60.0 ml/min (>90) 06/25/16 21:50 Est GFR (Non-Af Amer) > 60.0 ml/min 06/25/16 21:50 BUN/Creatinine Ratio 41.3 06/25/16 21:50 Glucose 116 mg/dL (70-105) H 06/25/16 21:50 Calcium 9.1 mg/dL (8.6-10.3) 06/25/16 21:50 Total Bilirubin 0.3 mg/dL (0.3-1.0) 06/25/16 21:50 AST 29 U/L (13-39) 06/25/16 21:50 ALT 27 U/L (7-52) 06/25/16 21:50 Alkaline Phosphatase 83 U/L (34-104) 06/25/16 21:50 Troponin I < 0.01 ng/mL (0.01-0.05) L 06/25/16 21:50 Total Protein 6.6 gm/dL (6.0-8.3) 06/25/16 21:50 Albumin 3.7 gm/dL (3.7-5.3) 06/25/16 21:50 Globulin 2.9 gm/dL 06/25/16 21:50 Albumin/Globulin Ratio 1.3 (1.0-1.8) 06/25/16 21:50 TSH 3.09 uIU/ml (0.34-5.60) 06/25/16 21:50 Urine Source CLEAN C 06/26/16 00:25 Urine Color YELLOW 06/26/16 00:25 Urine Clarity HAZY (CLEAR) 06/26/16 00:25 Urine pH 7.0 06/26/16 00:25 Ur Specific [place] 1.025 (1.005-1.030) 06/26/16 00:25 Urine Protein NEGATIVE mg/dL (NEGATIVE) 06/26/16 00:25 Urine Glucose (UA) NEGATIVE mg/dL (NEGATIVE) 06/26/16 00:25 Urine Ketones NEGATIVE mg/dL (NEGATIVE) 06/26/16 00:25 Urine Blood NEGATIVE (NEGATIVE) 06/26/16 00:25 Urine Nitrate POSITIVE (NEGATIVE) H 06/26/16 00:25 Urine Bilirubin NEGATIVE (NEGATIVE) 06/26/16 00:25 Urine Urobilinogen 1.0 E.U./dL (0.2 - 1.0) 06/26/16 00:25 Ur Leukocyte Esterase TRACE (NEGATIVE) H 06/26/16 00:25 Urine RBC NONE SEEN /hpf (0-5) 06/26/16 00:25 Urine WBC 2-5 /hpf (0-5) 06/26/16 00:25 Ur Epithelial Cells FEW /lpf (FEW) 06/26/16 00:25 Urine Bacteria MANY /hpf (NONE SEEN) 06/26/16 00:25 - Physical Exam Vitals and I&O: Vital Signs Temp 98.5 F 06/26/16 16:00 Pulse 107 06/26/16 16:00 Resp 18 06/26/16 16:00 BP 126/85 06/26/16 16:00 Pulse Ox 93 06/26/16 16:00 Intake & Output 06/26/16 06/26/16 06/27/16 06:59 18:59 06:59 Intake Total 600 Balance 600 Weight (lbs) 61.235 kg Intake: Oral 600 Other: # Voids 3 # Bowel Movements 0 Active Medications: Current Medications Benztropine Mesylate (Cogentin) 1 mg PO TID [facility] Stop: 08/25/16 08:59 Last Admin: 06/26/16 15:03 Dose: 1 mg Calcium Carbonate (Os-Raciel) 500 mg PO TID [facility] Stop: 08/25/16 13:59 Last Admin: 06/26/16 15:03 Dose: 500 mg Chlorpromazine (Thorazine) 25 mg PO BID [facility] PRN Reason: Protocol Stop: 08/25/16 08:59 Last Admin: 06/26/16 18:00 Dose: 25 mg Clotrimazole (Lotrimin 1% Cream) 1 appl TP BID [facility] Stop: 08/25/16 08:59 Last Admin: 06/26/16 18:00 Dose: Not Given Desmopressin Acetate (Ddavp) 0.1 mg PO TID [facility] Stop: 08/25/16 13:59 Last Admin: 06/26/16 15:03 Dose: 0.1 mg Fluvoxamine Maleate (Luvox) 100 mg PO HS [facility] Stop: 08/25/16 20:59 Gabapentin (Neurontin) 800 mg PO TID [facility] Stop: 08/25/16 13:59 Last Admin: 06/26/16 15:02 Dose: 800 mg Potassium Chloride/Dextrose/Sod Cl (D5-0.9ns W/Kcl 20meq) 1,000 mls @ 100 mls/ hr IV .Q10H [facility] Stop: 08/25/16 08:44 Last Admin: 06/26/16 11:21 Dose: 100 mls/hr Ceftriaxone Sodium 1 gm/ (Sodium Chloride) 50 mls @ 100 mls/hr IV Q24HR [facility] Stop: 08/25/16 08:44 Last Admin: 06/26/16 11:09 Dose: 100 mls/hr Lactulose (Cephulac) 10 gm PO BID [facility] Stop: 08/25/16 16:59 Last Admin: 06/26/16 18:00 Dose: 10 gm Lamotrigine (Lamictal) 200 mg PO BID [facility] Stop: 08/25/16 16:59 Last Admin: 06/26/16 18:00 Dose: 200 mg Levothyroxine Sodium (Synthroid) 0.025 mg PO QDAC [facility] Stop: 08/26/16 07:29 Miscellaneous (Lamotrigine [Lamictal*]) 200 mg PO BID [facility] Stop: 08/25/16 08:59 Quetiapine Fumarate (Seroquel) 600 mg PO HS [facility] PRN Reason: Protocol Stop: 08/25/16 20:59 Quetiapine Fumarate (Seroquel) 200 mg PO BID [facility] PRN Reason: Protocol Stop: 08/25/16 08:59 Last Admin: 06/26/16 18:00 Dose: 200 mg Vitamin E (Vitamin E) 400 iu PO BID [facility] Stop: 08/25/16 16:59 Last Admin: 06/26/16 18:00 Dose: 400 iu General: Alert, Other (agitated) Neck: Supple Cardiovascular: Regular rate Lungs: Clear to auscultation Abdomen: Bowel sounds - Procedures Procedures: Procedures Procedure Code Date CLOSURE SKIN & SUBCUTANEOUS NEC 86.59 09/08/10 RPR F/E/E/N/L/M 2.5 CM/< 85972 09/08/10 Assessment/Plan - Problem List Patient Problems: All Active Problems hypokalemia (Acute) mental delay (Acute) toxic metabolic encephalopathy (Acute) uti (Acute) Cerebral palsy (Acute) G80.9 Hyponatremia (Acute) E87.1 INTERMITTANT FOCAL SEIZURES (Acute) Seizure disorder (Acute) G40.909 Twitching (Acute) R25.3 - Plan Plan: id/nuero consult Nutritional Asmnt/Malnutr-PDOC - Dietary Evaluation Malnutrition Findings (Please click <Entered> for more info): Nutritional Asmnt/Malnutrition Start: 06/26/16 14: 37 Text: Status: Complete Freq: Document 06/26/16 15:03 GSUN (Rec: 06/26/16 15:15 GSUN [email or web address]) Nutritional Asmnt/Malnutrition Patient General Information Nutritional Screening Consult Diagnosis ER: psychosis, retardation Pertinent Medical Hx/Surgical Hx ER: mental retardation, seizures, throid disorder, dementia Subjective Information 51 [address] consult failure to thrive. RD visited pt twice. First time pt was seen with hand mittens, standing up from bed attempting to walk with FRUIT GRADER and rehab assisting. Spoke to FRUIT GRADER, pt ate 100% breakfast. Second visit during meal time, observed FRUIT GRADER feeding pt, tolerating meals well, no difficulties noted. No significant fat/muscle wasting noted. Current Diet Order/ Nutrition Support Regular Pertinent Medications Os-Raciel, Cephulac, synthroid, D5, Seroquel, Vitamin E Pertinent Labs BUN 33H, glucose 116H Nutritional Hx/Data Height 1.6 m Height (Calculated Centimeters) 160.0 Current Weight (lbs) 61.235 kg Weight (Calculated Kilograms) 61.2 Weight (Calculated Grams) 49494.0 [place] Body Weight 115 Weight Status Approriate GI Symptoms Food Allergies Yes Cultural/Ethnic/Presybeterian Belief Allergies: cheery tomatoes, weeds Skin Integrity/Comment: Skin intact. Current %PO Good (75-100%) Estimated Nutritional Goals BEE in Kcals: Using Current wt Calories/Kcals/Kg CBW 135lb/61.4kg Kcals Calculated 1535-1842kcal (25-30kcal/kg) Protein: Using Current wt Protein g/kg: CBW Protein Calculated 49-61g (0.8-1g/kg) Fluid: ml 1535-1842ml (1ml/kcal) Nutritional Problem 1. Problem Problem Self-feeding difficulty related to Etiology mental retardation aeb Signs/Symptoms: requiring total assist with meals, hand mittens on Intervention/Recommendation Comments 1. Continue with regular diet. PO intake is adequate. Continue to provide total assist with meals. Expected Outcomes/Goals Expected Outcomes/Goals 1. PO intake continue to meet at least 75% of estimated nutritional needs.
--- NOTE | 2016-06-26 23:17 | History & Physical ---
HISTORY OF PRESENT ILLNESS: The patient is chronically, mentally challenged 51-year-old female patient known to have history of seizures who came to the Emergency Room because she was very agitated. The patient was seen by ____ and was admitted for agitation, UTI, sepsis and rule out sepsis, dementia, thyroid disorder and encephalopathy. PAST MEDICAL HISTORY: History of seizures, thyroid disorder and dementia. PHYSICAL EXAMINATION: GENERAL: Alert, oriented, well nourished female seems to be very agitated. HEAD: Normal. ENT: Normal. NECK: Supple and nontender. LUNGS: Clear. CARDIOVASCULAR SYSTEM: S1 and S2 heard. ABDOMEN: Soft. Bowel sounds are heard. FACIAL OPERATOR: The patient is agitated. LABORATORY DATA: White count was 5.3, hemoglobin ____ 12.5. Chest x-ray was normal ____ the patient's EKG showed sinus tachycardia, left anterior fascicular block and the urine showed nitrite was positive. DIAGNOSES: Toxic metabolic encephalopathy, UTI, rule out sepsis, psychosis, mental retardation, history of mental delay and history of seizures, history of dementia and history of thyroid disorder was made. The patient is being admitted. I will go ahead and give IV antibiotics. We will have continue her medications and the patient also has electrolyte imbalance. We will correct that and we will have Dr. Cole see the patient to monitor her seizures and also we will have Dr. Juan C Lynn see the patient for ID and I will follow the patient. JOB# [id number]
[2016-06-27] MEDS: D5-0.9NS w/KCL 20mEq 1,000 ML IV SCH ×2 (06:16→18:32)
[2016-06-27] MEDS: Levothyroxine 0.025 Mg Tab PO SCH (08:00)
[2016-06-27] MEDS: Benztropine 1 MG TAB PO SCH ×3 (09:16→21:21)
[2016-06-27] MEDS: Lactulose 10 Gm/15 mL 30mL UDC PO SCH ×2 (09:17→16:26)
[2016-06-27] MEDS: Multivitamin w/ Minerals Tab PO SCH (09:20)
[2016-06-27] MEDS: cefTRIAXone 1 GM in Sodium Chloride 0.9% 50 ML IV SCH (09:54)
--- NOTE | 2016-06-28 05:16 | Progress Notes ---
SUBJECTIVE: The patient was seen in her room, lying in the bed with a sitter at the bedside for the patient's safety. The patient has soft mittens on the left hand for the patient tried to pull out her IV access. The patient is a poor historian due to medical condition. OBJECTIVE: HEENT: Head is atraumatic and normocephalic. Eyes: Bilateral conjunctivae are clear from injections. NECK: Supple. No JVD. CARDIOVASCULAR: S1 and S2 heard without murmur. PULMONARY: Clear to auscultation. GASTROINTESTINAL: Soft and nontender without guarding. MUSCULOSKELETAL: No edema. No clubbing. ASSESSMENT: 1. Urinary tract infection. 2. Hypothyroidism. 3. Psychosis. 4. Dementia. 5. Mental retardation. PLAN: We will continue to keep the patient in Med/Surg floor and also we will continue IV antibiotics for management of the urinary tract infection. JOB# [id number]
[2016-06-28] MEDS: cefTRIAXone 1 GM in Sodium Chloride 0.9% 50 ML IV SCH (08:58)
[2016-06-28] MEDS: Lactulose 10 Gm/15 mL 30mL UDC PO SCH (08:59)
[2016-06-28] MEDS: Benztropine 1 MG TAB PO SCH ×2 (09:01→15:09)
[2016-06-28] MEDS: Multivitamin w/ Minerals Tab PO SCH (09:01)
[2016-06-28] MEDS: Levothyroxine 0.025 Mg Tab PO SCH (09:01)
--- NOTE | 2016-06-28 15:44 | Infectious Disease Prog Note ---
Infectious Disease Subjective - Review of Systems Service Date: 06/28/16 Events since last encounter: None. Subjective: No new change, there is no fever. Infectious Disease Objective - Results Result Diagrams: 06/25/16 21:50 06/25/16 21:50 Recent Labs: Laboratory Last Values WBC 5.3 Th/cmm (4.8-10.8) 06/25/16 21:50 RBC 3.64 Mil/cmm (3.80-5.10) L 06/25/16 21:50 Hgb 12.5 gm/dL (11.7-15.5) 06/25/16 21:50 Hct 36.5 % (35.0-45.0) D 06/25/16 21:50 MCV 100.3 fl (81-100) H 06/25/16 21:50 MCH 34.3 pg (27.0-31.0) H 06/25/16 21:50 MCHC Differential 34.2 pg (28.0-36.0) 06/25/16 21:50 RDW 12.8 % (11.5-20.0) 06/25/16 21:50 Plt Count 181 Th/cmm (150-400) 06/25/16 21:50 MPV 8.0 fl 06/25/16 21:50 Neutrophils % 59.1 % (40.0-80.0) 06/25/16 21:50 Lymphocytes % 28.1 % (20.0-50.0) 06/25/16 21:50 Monocytes % 9.1 % (2.0-10.0) 06/25/16 21:50 Eosinophils % 3.6 % (0.0-5.0) 06/25/16 21:50 Basophils % 0.1 % (0.0-2.0) 06/25/16 21:50 Sodium 136 mEq/L (136-145) 06/25/16 21:50 Potassium 3.4 mEq/L (3.5-5.1) L 06/25/16 21:50 Chloride 106 mEq/L (98-107) 06/25/16 21:50 Carbon Dioxide 30.6 mEq/L (21.0-31.0) 06/25/16 21:50 Anion Gap 2.8 (7.0-16.0) L 06/25/16 21:50 BUN 33 mg/dL (7-25) H 06/25/16 21:50 Creatinine 0.8 mg/dL (0.6-1.2) 06/25/16 21:50 Est GFR ( Amer) > 60.0 ml/min (>90) 06/25/16 21:50 Est GFR (Non-Af Amer) > 60.0 ml/min 06/25/16 21:50 BUN/Creatinine Ratio 41.3 06/25/16 21:50 Glucose 116 mg/dL (70-105) H 06/25/16 21:50 POC Glucose 113 MG/DL (70 - 105) H 06/27/16 02:12 Calcium 9.1 mg/dL (8.6-10.3) 06/25/16 21:50 Total Bilirubin 0.3 mg/dL (0.3-1.0) 06/25/16 21:50 AST 29 U/L (13-39) 06/25/16 21:50 ALT 27 U/L (7-52) 06/25/16 21:50 Alkaline Phosphatase 83 U/L (34-104) 06/25/16 21:50 Troponin I < 0.01 ng/mL (0.01-0.05) L 06/25/16 21:50 Total Protein 6.6 gm/dL (6.0-8.3) 06/25/16 21:50 Albumin 3.7 gm/dL (3.7-5.3) 06/25/16 21:50 Globulin 2.9 gm/dL 06/25/16 21:50 Albumin/Globulin Ratio 1.3 (1.0-1.8) 06/25/16 21:50 TSH 3.09 uIU/ml (0.34-5.60) 06/25/16 21:50 Urine Source CLEAN C 06/26/16 00:25 Urine Color YELLOW 06/26/16 00:25 Urine Clarity HAZY (CLEAR) 06/26/16 00:25 Urine pH 7.0 06/26/16 00:25 Ur Specific [place] 1.025 (1.005-1.030) 06/26/16 00:25 Urine Protein NEGATIVE mg/dL (NEGATIVE) 06/26/16 00:25 Urine Glucose (UA) NEGATIVE mg/dL (NEGATIVE) 06/26/16 00:25 Urine Ketones NEGATIVE mg/dL (NEGATIVE) 06/26/16 00:25 Urine Blood NEGATIVE (NEGATIVE) 06/26/16 00:25 Urine Nitrate POSITIVE (NEGATIVE) H 06/26/16 00:25 Urine Bilirubin NEGATIVE (NEGATIVE) 06/26/16 00:25 Urine Urobilinogen 1.0 E.U./dL (0.2 - 1.0) 06/26/16 00:25 Ur Leukocyte Esterase TRACE (NEGATIVE) H 06/26/16 00:25 Urine RBC NONE SEEN /hpf (0-5) 06/26/16 00:25 Urine WBC 2-5 /hpf (0-5) 06/26/16 00:25 Ur Epithelial Cells FEW /lpf (FEW) 06/26/16 00:25 Urine Bacteria MANY /hpf (NONE SEEN) 06/26/16 00:25 - Physical Exam Vitals and I&O: Vital Signs Temp 97.5 F 06/28/16 04:00 Pulse 105 06/28/16 04:00 Resp 18 06/28/16 04:00 BP 118/82 06/28/16 04:00 Pulse Ox 97 06/28/16 04:00 Intake & Output 06/27/16 06/28/16 06/28/16 18:59 06:59 18:59 Intake Total 2250 100 Balance 2250 100 Weight (lbs) 64.637 kg Intake: Intake, IV Amount 1050 D5-0.9NS w/KCL 20mEq 1, 1000 000 ml @ 100 mls/hr IV . Q10H [facility] Rx#:[id number] cefTRIAXone 1 gm In 50 Sodium Chloride 0.9% 50 ml @ 100 mls/hr IV Q24HR [facility] Rx#:[id number] Oral 1200 100 Other: # Voids 4 2 # Bowel Movements 1 Stool Characteristics Formed Active Medications: Current Medications Benztropine Mesylate (Cogentin) 1 mg PO TID [facility] Stop: 08/25/16 08:59 Last Admin: 06/28/16 15:09 Dose: Not Given Calcium Carbonate (Os-Raciel) 500 mg PO TID [facility] Stop: 08/25/16 13:59 Last Admin: 06/28/16 15:09 Dose: Not Given Chlorpromazine (Thorazine) 25 mg PO BID [facility] PRN Reason: Protocol Stop: 08/25/16 08:59 Last Admin: 06/28/16 08:59 Dose: 25 mg Clotrimazole (Lotrimin 1% Cream) 1 appl TP BID [facility] Stop: 08/25/16 08:59 Last Admin: 06/28/16 09:04 Dose: 1 appl Desmopressin Acetate (Ddavp) 0.1 mg PO TID [facility] Stop: 08/25/16 13:59 Last Admin: 06/28/16 15:09 Dose: Not Given Fluvoxamine Maleate (Luvox) 100 mg PO HS [facility] Stop: 08/25/16 20:59 Last Admin: 06/27/16 21:24 Dose: 100 mg Gabapentin (Neurontin) 800 mg PO TID [facility] Stop: 08/25/16 13:59 Last Admin: 06/28/16 09:03 Dose: 800 mg Potassium Chloride/Dextrose/Sod Cl (D5-0.9ns W/Kcl 20meq) 1,000 mls @ 100 mls/ hr IV .Q10H [facility] Stop: 08/25/16 08:44 Last Admin: 06/27/16 18:32 Dose: 100 mls/hr Ceftriaxone Sodium 1 gm/ (Sodium Chloride) 50 mls @ 100 mls/hr IV Q24HR [facility] Stop: 08/25/16 08:44 Last Admin: 06/28/16 08:58 Dose: 100 mls/hr Lactulose (Cephulac) 10 gm PO BID [facility] Stop: 08/25/16 16:59 Last Admin: 06/28/16 08:59 Dose: 10 gm Lamotrigine (Lamictal) 200 mg PO BID [facility] Stop: 08/25/16 16:59 Last Admin: 06/28/16 08:59 Dose: 200 mg Levothyroxine Sodium (Synthroid) 0.025 mg PO QDAC [facility] Stop: 08/26/16 07:29 Last Admin: 06/28/16 09:01 Dose: 0.025 mg Mupirocin (Bactroban Oint) 1 appl NS BID [facility] Stop: 07/02/16 09:01 Last Admin: 06/28/16 09:04 Dose: 1 appl Quetiapine Fumarate (Seroquel) 600 mg PO HS [facility] PRN Reason: Protocol Stop: 08/25/16 20:59 Last Admin: 06/27/16 21:21 Dose: 600 mg Quetiapine Fumarate (Seroquel) 200 mg PO BID [facility] PRN Reason: Protocol Stop: 08/25/16 08:59 Last Admin: 06/28/16 09:01 Dose: 200 mg Vitamin E (Vitamin E) 400 iu PO BID [facility] Stop: 08/25/16 16:59 Last Admin: 06/28/16 09:01 Dose: 400 iu General: no acute distress, well developed, well nourished HEENT: atraumatic, normocephalic, PERRLA Neck: supple, thyromegaly, lymphadenopathy Cardiovascular: S1S2, regular Lungs: clear to auscultation bilaterally, clear to percussion Abdomen: soft, no tender, no distended Extremities: no cyanosis, no clubbing, no edema Neurological: awake, alert Skin: intact - Procedures Procedures: Procedures Procedure Code Date CLOSURE SKIN & SUBCUTANEOUS NEC 86.59 09/08/10 RPR F/E/E/N/L/M 2.5 CM/< 32654 09/08/10 Infectious Disease Assmt/Plan - Problem List Patient Problems: All Active Problems hypokalemia (Acute) mental delay (Acute) toxic metabolic encephalopathy (Acute) uti (Acute) Cerebral palsy (Acute) G80.9 Hyponatremia (Acute) E87.1 INTERMITTANT FOCAL SEIZURES (Acute) Seizure disorder (Acute) G40.909 Twitching (Acute) R25.3 - Assessment Assessment: Impression : 1. mild UTI. 2. MRSA colonizartion. 3. Dementia. Rec jacque change antibiotic to levaquin po for 3 more days, Ok to DC from ID point of view. Nutritional Asmnt/Malnutr-PDOC - Dietary Evaluation Malnutrition Findings (Please click <Entered> for more info): Nutritional Asmnt/Malnutrition Start: 06/26/16 14: 37 Text: Status: Complete Freq: Document 06/26/16 15:03 GSUN (Rec: 06/26/16 15:15 GSUN [email or web address]) Nutritional Asmnt/Malnutrition Patient General Information Nutritional Screening Consult Diagnosis ER: psychosis, retardation Pertinent Medical Hx/Surgical Hx ER: mental retardation, seizures, throid disorder, dementia Subjective Information 51 [address] consult failure to thrive. RD visited pt twice. First time pt was seen with hand mittens, standing up from bed attempting to walk with BANKRUPTCY JUDGE and rehab assisting. Spoke to BANKRUPTCY JUDGE, pt ate 100% breakfast. Second visit during meal time, observed BANKRUPTCY JUDGE feeding pt, tolerating meals well, no difficulties noted. No significant fat/muscle wasting noted. Current Diet Order/ Nutrition Support Regular Pertinent Medications Os-Raciel, Cephulac, synthroid, D5, Seroquel, Vitamin E Pertinent Labs BUN 33H, glucose 116H Nutritional Hx/Data Height 1.6 m Height (Calculated Centimeters) 160.0 Current Weight (lbs) 61.235 kg Weight (Calculated Kilograms) 61.2 Weight (Calculated Grams) 96636.0 [place] Body Weight 115 Weight Status Approriate GI Symptoms Food Allergies Yes Cultural/Ethnic/Restorationist Belief Allergies: cheery tomatoes, weeds Skin Integrity/Comment: Skin intact. Current %PO Good (75-100%) Estimated Nutritional Goals BEE in Kcals: Using Current wt Calories/Kcals/Kg CBW 135lb/61.4kg Kcals Calculated 1535-1842kcal (25-30kcal/kg) Protein: Using Current wt Protein g/kg: CBW Protein Calculated 49-61g (0.8-1g/kg) Fluid: ml 1535-1842ml (1ml/kcal) Nutritional Problem 1. Problem Problem Self-feeding difficulty related to Etiology mental retardation aeb Signs/Symptoms: requiring total assist with meals, hand mittens on Intervention/Recommendation Comments 1. Continue with regular diet. PO intake is adequate. Continue to provide total assist with meals. Expected Outcomes/Goals Expected Outcomes/Goals 1. PO intake continue to meet at least 75% of estimated nutritional needs.
--- NOTE | 2016-06-28 19:47 | Discharge Summary ---
Covering for Dr. Hackett. HOSPITAL COURSE: This is a 51-year-old female who was examined today and discussed with the staff and discussed with ID and reviewed the chart and the labs, and the patient was admitted here for UTI and generalized weakness, but today, the patient is doing better and she is awake and she is not weak and her vital signs are stable and her labs reviewed, which seem to be within normal limits and hence the patient is decided to be discharged today. REVIEW OF SYSTEMS: Done. PHYSICAL EXAMINATION: VITAL SIGNS: Today are temperature 97.3, pulse 105, blood pressure 119/79, respirations 18, and 93% saturation on the room air. HEENT: Head is normocephalic and atraumatic. NECK: Supple. LUNGS: Clear to auscultation. ABDOMEN: Soft. HEART: S1, S2 heard. EXTREMITIES: Have no clubbing, no cyanosis, and no edema. DIAGNOSES: Urinary tract infection, leukocyte esterase positive. PLAN: To discharge to the [facility] with the p.o. Levaquin 500 mg every day for 10 days and to be followed by Dr. Hackett in the alf. JOB# [id number]
--- NOTE | 2016-06-29 03:42 | Consultation ---
INFECTIOUS DISEASE CONSULTATION REFERRING PHYSICIAN: Dr. Hackett. REASON FOR CONSULTATION: UTI. HISTORY OF PRESENT ILLNESS: The patient is mentally challenged 51-year-old female with a history of seizure disorder, mental retardation, brought in from nursing facility for agitation. The patient was admitted with diagnosis of UTI and dementia. PAST MEDICAL HISTORY: Seizure disorder, hypothyroidism, dementia, and mental psychosis. She has some mental retardation. ALLERGIES: NKDA. MEDICATIONS: As per medication reconciliation sheet. Antibiotic colbert, the patient is getting Rocephin. SOCIAL HISTORY: The patient lives at nursing facility. No history of smoking, alcohol, or drug use. FAMILY HISTORY: Not available. PHYSICAL EXAMINATION: VITAL SIGNS: Shows temperature is 98.2, pulse 102, respirations 18, and blood pressure 122/81. GENERAL: The patient is comfortably lying in the bed, not in acute distress. HEENT: Head is normocephalic and atraumatic. Oral cavity moist and pink tongue. NECK: Supple, no JVD, and no carotid bruit. Trachea in midline. CHEST: Bilateral breath sounds. No crackles or wheezing. HEART: S1, S2 within normal limits. Regular rhythm. No murmur, no gallop. ABDOMEN: Soft, nontender, and nondistended. Bowel sounds present. EXTREMITIES: No cyanosis, no clubbing, and no edema. NEUROLOGIC: Alert and awake, but unable to give any appropriate history. LABORATORY DATA: Current lab shows WBC of 5300, hemoglobin 12.5, hematocrit 36.5, and platelets are 181,000. Sodium is 136, potassium 3.4, chloride 106, bicarbonate is 30, BUN is 33, creatinine 0.8, and glucose is 116. Urinalysis showed positive nitrite and trace leukocyte esterase with many bacteria. Blood culture 2 sets are pending. MRSA screen is positive. Chest x-ray shows no active disease. IMPRESSION: 1. Suspected mild urinary tract infection. 2. Methicillin-resistant Staphylococcus aureus colonization. 3. Dementia. RECOMMENDATIONS: May change Rocephin to Cipro p.o. for 5-7 days. JOB# [id number] [facility]
== END 2016-06-28 20:45 | DRG 689 ==
LOC: ER 19:22 → MSI 06-26 01:20
PROVIDERS: ADMIT Internal Medicine; ATTEND Internal Medicine
DX: N39.0 Urinary tract infection, site not specified (principal); G92 Toxic encephalopathy; F29 Unspecified psychosis not due to a substance or known physiological condition; F79 Unspecified intellectual disabilities; G40.909 Epilepsy, unspecified, not intractable, without status epilepticus; F03.90 Unspecified dementia, unspecified severity, without behavioral disturbance, psychotic disturbance, mood disturbance, and anxiety; E03.9 Hypothyroidism, unspecified; Z91.018 Allergy to other foods; Z91.048 Other nonmedicinal substance allergy status; Z22.322 Carrier or suspected carrier of Methicillin resistant Staphylococcus aureus
CPT/HCPCS: 36415-UA; 71010-TC; 80053-TC; 81001-TC; 82948-90; 84443-TC; 84484-TC; 85025-TC; 90784; 93005; 97530; J0696; J1630; J2060; J7030; J7042; Q0161; X3904; Z7610

== ENCOUNTER 2016-09-30 17:47 | Inpatient (IN) | payer MEDICARE, MEDICAID ==
--- NOTE | 2016-09-30 18:21 | ED Physician Chart ---
Chief Complaint/HPI - Patient Information Date Seen:: 09/30/16 Time Seen:: 17:48 Chief Complaint:: Abnormal lab with hyponatremia. History of Present Illness:: Brought in by ambulance from nursing facility for the above reason. Pt was seen immediately upon her arrival. Pt is alert and active in no apparent distress. H & P are limited because pt has dementia and is not cooperative. Allergies:: Allergies Allergy/AdvReac Type Severity Reaction Status Date / Time cats Allergy Unknown UNKNOWN Uncoded 06/25/16 19:53 caraballo tomatoes Allergy Unknown UNKNOWN Uncoded 06/25/16 19:53 weeds Allergy Unknown UNKNOWN Uncoded 06/25/16 19:53 Vitals:: Vital Signs - 8 hr 09/30/16 18:05 Temp 98.8 F HR 104 RR 17 BP 136/90 O2 Sat % 97 Historian:: Medical Records (from transferring facility) Family MD/PCP:: Dr. Lamar LMP:: unknown Review:: Nurse's Note Reviewed, Transfer documents Reviewed Review of Systems - Review of Systems General/Constitutional: Other (Pt does not cooperate for ROS.) Past Medical History - Past Medical History Past Medical History: Thyroid disorder, Dementia, Other Family History: Other (Pt does not cooperate to provide info on FHx.) Social History: Care Facility, Other (Pt does not cooperate to provide info for SHx.) Employment:: on disability. Surgical History: other (Pt does not cooperate to provide info on Surgical Hx.) Psychiatricy History: Dementia Medication: Reviewed Family Medical History - Family Member Mother History Unknown: Yes Ethnicity: Non- Living Status: Unknown Other Medical History: Patient non-verbal Physical Exam - Physical Examination General/Constitutional: Awake, Well-developed, well-nourished, Alert, No distress, Non-toxic appearing Other Gen/Cons comments:: Breathes comfortably. Pt is essentially nonverbal but is alert, active and responsive to voice and tactile stimuli. Head: Atraumatic Eyes: Lids, conjuctiva normal, PERRL, EOMI Skin: No skin lesions, No ecchymosis, No lymphadenopathy ENMT: External ears, nose nl, Nasal exam nl, Oropharynx nl Other ENMT comments:: Mucous membrane slightly dry. Neck: Nontender, Full ROM w/o pain, No JVD, No nuchal rigidity, No bruit, No mass, No stridor Respiratory: Nl effort/Exclusion, Clear to Auscultation, No Wheeze/Rhonchi/Rales Cardio Vascular: No murmur, gallop, rubs Other Cardio Vascular comments:: Regular rhythm with mild tachycardia. VR 104. GI: No tenderness/rebounding/guarding, No organomegaly, No hernia, Normal BS's, Nondistended, No mass/bruits, No McBurney tenderness : No CVA tenderness Extremities: No tenderness or effusion, No edema Other Neuro/Psych comments:: Alert and responsive to voice and tactile stimuli. Spontaneous movements noticed in all 4 extremities. Pt does not cooperate for full neurological exam. Labs/Radiology/EKG Results - Lab Results Results: Laboratory Tests 09/30/16 09/30/16 09/30/16 18:34 18:34 18:34 WBC 5.3 RBC 4.00 Hgb 13.7 Hct 40.4 D MCV 101.1 H MCH 34.2 H MCHC Differential 33.8 RDW 11.8 Plt Count 204 MPV 7.6 Neutrophils % 52.8 Lymphocytes % 32.6 Monocytes % 9.4 Eosinophils % 4.9 Basophils % 0.3 PT 10.2 INR 0.98 PTT (Actin FS) 25.0 L Sodium 122 L D Potassium 4.0 Chloride 89 L Carbon Dioxide 28.2 Anion Gap 8.8 BUN 18 Creatinine 0.7 Est GFR ( Amer) > 60.0 Est GFR (Non-Af Amer) > 60.0 BUN/Creatinine Ratio 25.7 Glucose 103 Calcium 9.4 Total Bilirubin 0.5 AST 24 ALT 30 Alkaline Phosphatase 109 H Total Protein 7.3 Albumin 4.4 Globulin 2.9 Albumin/Globulin Ratio 1.5 Urine Source Urine Color Urine Clarity Urine pH Ur Specific [place] Urine Protein Urine Glucose (UA) Urine Ketones Urine Blood Urine Nitrate Urine Bilirubin Urine Urobilinogen Ur Leukocyte Esterase Urine RBC Urine WBC Ur Epithelial Cells Amorphous Sediment Urine Bacteria Urine Test 09/30/16 09/30/16 19:10 19:10 WBC RBC Hgb Hct MCV MCH MCHC Differential RDW Plt Count MPV Neutrophils % Lymphocytes % Monocytes % Eosinophils % Basophils % PT INR PTT (Actin FS) Sodium Potassium Chloride Carbon Dioxide Anion Gap BUN Creatinine Est GFR ( Amer) Est GFR (Non-Af Amer) BUN/Creatinine Ratio Glucose Calcium Total Bilirubin AST ALT Alkaline Phosphatase Total Protein Albumin Globulin Albumin/Globulin Ratio Urine Source [place] Urine Color YELLOW Urine Clarity CLEAR Urine pH 6.5 Ur Specific [place] 1.020 Urine Protein NEGATIVE Urine Glucose (UA) NEGATIVE Urine Ketones NEGATIVE Urine Blood SMALL H Urine Nitrate NEGATIVE Urine Bilirubin NEGATIVE Urine Urobilinogen 0.2 Ur Leukocyte Esterase NEGATIVE Urine RBC 2-5 Urine WBC 0-2 Ur Epithelial Cells RARE Amorphous Sediment FEW URATES Urine Bacteria FEW Urine Test NEGATIVE Laboratory Last Values WBC 5.3 Th/cmm (4.8-10.8) 09/30/16 18:34 RBC 4.00 Mil/cmm (3.80-5.10) 09/30/16 18:34 Hgb 13.7 gm/dL (11.7-15.5) 09/30/16 18:34 Hct 40.4 % (35.0-45.0) D 09/30/16 18:34 MCV 101.1 fl (81-100) H 09/30/16 18:34 MCH 34.2 pg (27.0-31.0) H 09/30/16 18:34 MCHC Differential 33.8 pg (28.0-36.0) 09/30/16 18:34 RDW 11.8 % (11.5-20.0) 09/30/16 18:34 Plt Count 204 Th/cmm (150-400) 09/30/16 18:34 MPV 7.6 fl 09/30/16 18:34 Neutrophils % 52.8 % (40.0-80.0) 09/30/16 18:34 Lymphocytes % 32.6 % (20.0-50.0) 09/30/16 18:34 Monocytes % 9.4 % (2.0-10.0) 09/30/16 18:34 Eosinophils % 4.9 % (0.0-5.0) 09/30/16 18:34 Basophils % 0.3 % (0.0-2.0) 09/30/16 18:34 PT 10.2 SECONDS (9.5-11.5) 09/30/16 18:34 INR 0.98 (0.5-1.4) 09/30/16 18:34 PTT (Actin FS) 25.0 SECONDS (26.0-38.0) L 09/30/16 18:34 Sodium 122 mEq/L (136-145) L D 09/30/16 18:34 Potassium 4.0 mEq/L (3.5-5.1) 09/30/16 18:34 Chloride 89 mEq/L (98-107) L 09/30/16 18:34 Carbon Dioxide 28.2 mEq/L (21.0-31.0) 09/30/16 18:34 Anion Gap 8.8 (7.0-16.0) 09/30/16 18:34 BUN 18 mg/dL (7-25) 09/30/16 18:34 Creatinine 0.7 mg/dL (0.6-1.2) 09/30/16 18:34 Est GFR ( Amer) > 60.0 ml/min (>90) 09/30/16 18:34 Est GFR (Non-Af Amer) > 60.0 ml/min 09/30/16 18:34 BUN/Creatinine Ratio 25.7 09/30/16 18:34 Glucose 103 mg/dL (70-105) 09/30/16 18:34 Calcium 9.4 mg/dL (8.6-10.3) 09/30/16 18:34 Total Bilirubin 0.5 mg/dL (0.3-1.0) 09/30/16 18:34 AST 24 U/L (13-39) 09/30/16 18:34 ALT 30 U/L (7-52) 09/30/16 18:34 Alkaline Phosphatase 109 U/L (34-104) H 09/30/16 18:34 Total Protein 7.3 gm/dL (6.0-8.3) 09/30/16 18:34 Albumin 4.4 gm/dL (3.7-5.3) 09/30/16 18:34 Globulin 2.9 gm/dL 09/30/16 18:34 Albumin/Globulin Ratio 1.5 (1.0-1.8) 09/30/16 18:34 Urine Source [place] 09/30/16 19:10 Urine Color YELLOW 09/30/16 19:10 Urine Clarity CLEAR (CLEAR) 09/30/16 19:10 Urine pH 6.5 09/30/16 19:10 Ur Specific [place] 1.020 (1.005-1.030) 09/30/16 19:10 Urine Protein NEGATIVE mg/dL (NEGATIVE) 09/30/16 19:10 Urine Glucose (UA) NEGATIVE mg/dL (NEGATIVE) 09/30/16 19:10 Urine Ketones NEGATIVE mg/dL (NEGATIVE) 09/30/16 19:10 Urine Blood SMALL (NEGATIVE) H 09/30/16 19:10 Urine Nitrate NEGATIVE (NEGATIVE) 09/30/16 19:10 Urine Bilirubin NEGATIVE (NEGATIVE) 09/30/16 19:10 Urine Urobilinogen 0.2 E.U./dL (0.2 - 1.0) 09/30/16 19:10 Ur Leukocyte Esterase NEGATIVE (NEGATIVE) 09/30/16 19:10 Urine RBC 2-5 /hpf (0-5) 09/30/16 19:10 Urine WBC 0-2 /hpf (0-5) 09/30/16 19:10 Ur Epithelial Cells RARE /lpf (FEW) 09/30/16 19:10 Amorphous Sediment FEW URATES (NONE SEEN) 09/30/16 19:10 Urine Bacteria FEW /hpf (NONE SEEN) 09/30/16 19:10 Urine Test NEGATIVE 09/30/16 19:10 ED Septic Shock - . Is Septic Shock (SBP<90, OR Lactate>4 mmol\L) present?: No - <6hrs of presentation: Vital Signs: Vital Signs - 8 hr 09/30/16 18:05 Temp 98.8 F HR 104 RR 17 BP 136/90 O2 Sat % 97 Reassessment (Disposition) - Reassessment Reassessment:: 2003 Pt remains stable. No new findings. Case was discussed with Dr. Hackett with pertinent H & P and lab findings reviewed. Pt is to be admitted to [facility] under his care. Reassessment Condition:: Improved - Diagnosis Diagnosis:: Hyponatremia. Dehydration. - Patient Disposition Admitted to:: Med/Surg Admitting Medical Physician:: Leighton Hackett Time:: 20:05 Condition at Disposition:: Stable, Improved
[2016-09-30] MEDS ORDERED: Sodium Chloride 0.9% 500 ML IV ONE (18:25)
[2016-09-30 18:42] LABS: % BASOPHILS 0.3 % (0.0-2.0); % EOSINOPHILS 4.9 % (0.0-5.0); % LYMPHOCYTES 32.6 % (20.0-50.0); % MONOCYTES 9.4 % (2.0-10.0); % NEUTROPHILS 52.8 % (40.0-80.0); HEMOGLOBIN 13.7 gm/dL (11.7-15.5); MEAN CELL VOLUME 101.1 fl (81-100); MEAN CORPUSCULAR HEMOGLOBIN 34.2 pg (27.0-31.0); MEAN CORPUSCULAR HGB CONC 33.8 pg (28.0-36.0); MEAN PLATELET VOLUME 7.6 fl; NEUTROPHILE ABSOLUTE 2.8 Th/cmm (1.8-8.0); PLATELET COUNT 204 Th/cmm (150-400); RED CELL DISTRIBUTION WIDTH 11.8 % (11.5-20.0); WHITE BLOOD COUNT 5.3 Th/cmm (4.8-10.8)
[2016-09-30 18:45] LABS: HEMATOCRIT 40.4 % (35.0-45.0)
[2016-09-30 18:52] LABS: INR 0.98 (0.5-1.4); PROTHROMBIN TIME (TEST) 10.2 SECONDS (9.5-11.5)
[2016-09-30 18:56] LABS: ALB/GLOB RATIO 1.5 (1.0-1.8); ALKALINE PHOSPHATASE 109 U/L (34-104); ANION GAP 8.8 (7.0-16.0); BILIRUBIN,TOTAL 0.5 mg/dL (0.3-1.0); BUN - UREA NITROGEN 18 mg/dL (7-25); BUN/CREATININE RATIO 25.7; CALCIUM SERUM 9.4 mg/dL (8.6-10.3); CARBON DIOXIDE 28.2 mEq/L (21.0-31.0); CHLORIDE 89 mEq/L (98-107); CREATININE - SERUM 0.7 mg/dL (0.6-1.2); GLUCOSE 103 mg/dL (70-105); SGOT 24 U/L (13-39); SGPT/ALT 30 U/L (7-52)
[2016-09-30 19:04] LABS: SODIUM SERUM 122 mEq/L (136-145)
[2016-09-30 19:30] LABS: URINE BILIRUBIN NEGATIVE (NEGATIVE); URINE BLOOD SMALL (NEGATIVE); URINE COLOR YELLOW; URINE GLUCOSE (UA) NEGATIVE (NEGATIVE); URINE KETONE NEGATIVE (NEGATIVE); URINE PH 6.5; URINE PROTEIN NEGATIVE (NEGATIVE); URINE UROBILINOGEN 0.2 E.U./dL (0.2 - 1.0)
[2016-09-30 19:31] LABS: URINE AMORPHOUS SEDIMENT FEW URATES (NONE SEEN); URINE BACTERIA FEW /hpf (NONE SEEN); URINE EPITHELIAL CELLS RARE /lpf (FEW); URINE WBC 0-2 /hpf (0-5)
[2016-09-30] MEDS ORDERED: Sodium Chloride 0.9% 1,000 ML IV SCH (22:30)
[2016-09-30 22:50] VITALS: BP 123/68
[2016-10-01] MEDS ORDERED: Promethazine DM 6.25/15mg-5mL 5 ML SYR PO PRN (00:07)
[2016-10-01] MEDS ORDERED: Triamcinolone Acetonide 0.1% Cream 15 gm TP PRN (00:07)
--- NOTE | 2016-10-01 04:22 | Admit Criteria Form ---
Admit Criteria Forms - Admit Criteria Diagnosis: HYPONATREMIA; HYPERNATREMIA; HYPOKALEMIA; HYPERKALEMIA; HYPOCALCEMIA; HYPERCALCEMIA Clinical Indications for Inpatient Care (Place 'X' for any and all applicable criteria): Ongoing inpatient care may be indicated for ANY ONE of the following [G](1)(2)(3 )(5): [X]I. Hyponatremia with ANY ONE of the following: [X]a) Sodium less than 130 mEq/L (mmol/L) (new) (6)(22) [ ]b) Sodium less than 135 mEq/L (mmol/L) with ANY ONE of the following: [ ]i) Severe medical etiology requiring inpatient management (eg, heart failure, hypovolemia) [ ]ii) Altered mental status [ ]iii) Seizures [ ]II. Hypernatremia with ANY ONE of the following: [ ]a) Sodium greater than 155 mEq/L (mmol/L) [ ]b) Sodium greater than 150 mEq/L (mmol/L) with ANY ONE of the following: [ ] i) Altered mental status [ ]ii) Seizures [ ]iii) Severe medical etiology (eg, hypovolemia, diabetes insipidus) [ ]iv) Severe weakness [ ]v) Severe medical etiology (eg, hemolysis, infection, drug overdose) [ ]III. Hypokalemia with ANY ONE of the following: [ ]a) Potassium less than 2.5 mEq/L (mmol/L) despite outpatient and emergency treatment [ ]b) Potassium less than 3.0 mEq/L (mmol/L) with ANY ONE of the following: [ ]i) Weakness [ ]ii) Cardiac abnormality (eg, arrhythmia, conduction disturbance) [ ]iii) Cardiac ischemia [ ]iv) Ileus [ ]v) Ongoing medical cause requiring inpatient management. ( e.g., acute renal wasting, SIADH) [ ]vi) Other severe symptoms [ ] IV. Hyperkalemia with ANY ONE of the following: [ ]a) Potassium greater than 6.5 mEq/L (mmol/L) [ ]b) Potassium greater than 5 mEq/L (mmol/L) with ANY ONE of the following: [ ]i) Severe ECG findings [H] [ ]ii) Acute worsening of renal failure (creatinine greater than 2.5 mg/dL (221 micromoles/L) or significant elevation for age and size) [ ] V. Hypocalcemia with ANY ONE of the following: [ ]a) Calcium less than 7 mg/dL (1.75 mmol/L) despite outpatient and emergency treatment(19) [ ]b) Calcium less than 8 mg/dL (2 mmol/L) with significant symptoms or findings; examples include: [ ]i) Cardiac abnormality (eg, arrhythmia or conduction disturbance) [ ]ii) Altered mental status [ ]iii) Seizures [ ]iv) Breathing difficulty [ ]v) Muscle spasms [ ]. Hypercalcemia with ANY ONE of the following: [ ]a) Calcium greater than 14 mg/dL (3.5 mmol/L) [ ]b) Calcium greater than 12 mg/dL (3 mmol/L) with ANY ONE of the following: [ ]i) Significant dehydration or hypovolemia as indicated by ANY ONE of the following(2): [ ]1. Clinically significant dehydration as indicated by ANY ONE of the following: [ ]A. Acute loss of weight from baseline (5% of body weight in adults, 9% in pediatric patients) [ ]B. Hemodynamic instability [ ]C. Acute renal failure [ ]D. Serum sodium greater than 150 mEq/L (mmol/L) [ ]2) Dehydration that is persistent indicated by ALL of the following: [ ]A. Oral rehydration therapy not tolerated or insufficient to adequately correct dehydration [ ]B. Appropriate intravenous treatment (eg, fluids ) does not readily correct dehydration ie, after 12 to 24 hours of treatment) [ ]ii) Significant symptoms or findings; examples include: [ ]1) Altered mental status [ ]2) Cardiac abnormality (eg, arrhythmia, conduction disturbance) [ ]3) Cardiac abnormality (eg, arrhythmia, conduction disturbance) The original [facility] content created by [employer] has been revised. The portions of the content which have been revised are identified through the use of italic text or in bold, and [facility] has neither reviewed nor approved the modified material. All other unmodified content is copyright [facility] Please see references footnoted in the original [facility] edition 2016
[2016-10-01 06:30] LABS: % BASOPHILS 0.3 % (0.0-2.0); % EOSINOPHILS 6.2 % (0.0-5.0); % MONOCYTES 10.3 % (2.0-10.0); % NEUTROPHILS 50.2 % (40.0-80.0); HEMATOCRIT 41.7 % (35.0-45.0); MEAN CORPUSCULAR HEMOGLOBIN 34.1 pg (27.0-31.0); MEAN CORPUSCULAR HGB CONC 33.7 pg (28.0-36.0); MEAN PLATELET VOLUME 7.4 fl; NEUTROPHILE ABSOLUTE 2.9 Th/cmm (1.8-8.0); PLATELET COUNT 218 Th/cmm (150-400); RED BLOOD COUNT 4.12 Mil/cmm (3.80-5.10); RED CELL DISTRIBUTION WIDTH 11.7 % (11.5-20.0); WHITE BLOOD COUNT 5.6 Th/cmm (4.8-10.8)
[2016-10-01 06:49] LABS: ANION GAP 7.2 (7.0-16.0); BUN - UREA NITROGEN 12 mg/dL (7-25); BUN/CREATININE RATIO 17.1; CALCIUM SERUM 9.3 mg/dL (8.6-10.3); CARBON DIOXIDE 25.6 mEq/L (21.0-31.0); CHLORIDE 97 mEq/L (98-107); CHOLESTEROL 131 mg/dL (<200); CREATININE - SERUM 0.7 mg/dL (0.6-1.2); GLUCOSE 80 mg/dL (70-105); POTASSIUM SERUM 3.8 mEq/L (3.5-5.1); SODIUM SERUM 126 mEq/L (136-145); TRIGLYCERIDES 68 mg/dL (<150)
[2016-10-01] MEDS: Levothyroxine 0.025 Mg Tab PO SCH (07:39)
[2016-10-01] MEDS ORDERED: Benztropine 1 MG TAB PO SCH (09:00)
[2016-10-01] MEDS ORDERED: GABAPENTIN 800 MG PO SCH (09:00)
[2016-10-01] MEDS: Lactulose 10 Gm/15 mL 30mL UDC PO SCH ×2 (09:47→18:04)
[2016-10-01] MEDS: Multivitamin w/ Minerals Tab PO SCH (09:47)
[2016-10-01] MEDS: Calcium Carb/Vit D 500 mg/200 U Tab PO SCH ×3 (09:47→21:37)
--- NOTE | 2016-10-01 16:02 | Consultation ---
Consult Note - Consult Note Service Date: 10/01/16 Consult Note: PHYSICIAN Consultation Note: Date of Admission: 09/30/16 Purpose of Consultation: Persistent hyponatremia Chief Complaint: Hyponatremia History of Present Illness: 51 year old female past medical history of psychosis who was brought in because of hyponatremia. A few hours prior to admission, labs drawn at [facility] revealed patient had hyponatremia. She was then brought to the emergency room. Past Medical History: Hypothyroidism, epilepsy, psychosis, neuropathy, unspecified dementia, incontinence Allergies no known drug allergy Allergy/AdvReac Type Severity Reaction Status Date / Time cats Allergy Unknown UNKNOWN Uncoded 06/25/16 19:53 caraballo tomatoes Allergy Unknown UNKNOWN Uncoded 06/25/16 19:53 weeds Allergy Unknown UNKNOWN Uncoded 06/25/16 19:53 Vital Signs Temp 98.5 F 10/01/16 08:00 Pulse 101 10/01/16 08:00 Resp 18 10/01/16 11:30 BP 122/84 10/01/16 08:00 Pulse Ox 94 10/01/16 08:00 Intake & Output 09/30/16 10/01/16 10/01/16 18:59 06:59 18:59 Intake Total 500 120 Output Total 1800 Balance -1300 120 Weight (lbs) 60.509 kg 58.423 kg Intake: Intake, IV Amount 500 Sodium Chloride 0.9% 500 500 ml @ Wide Open IV .Q0M ONE Rx#:[id number] Oral 120 Output: Urine 1800 Laboratory Results - last 24 hr 10/01/16 10/01/16 10/01/16 06:23 06:23 06:23 WBC 5.6 RBC 4.12 Hgb 14.0 Hct 41.7 MCV 101.0 H MCH 34.1 H MCHC Differential 33.7 RDW 11.7 Plt Count 218 MPV 7.4 Neutrophils % 50.2 Lymphocytes % 33.0 Monocytes % 10.3 H Eosinophils % 6.2 H Basophils % 0.3 Sodium 126 L Potassium 3.8 Chloride 97 L Carbon Dioxide 25.6 Anion Gap 7.2 BUN 12 Creatinine 0.7 Est GFR ( Amer) > 60.0 Est GFR (Non-Af Amer) > 60.0 BUN/Creatinine Ratio 17.1 Glucose 80 Calcium 9.3 Triglycerides 68 Cholesterol 131 LDL Cholesterol Direct 60 L HDL Cholesterol 51 TSH 4.58 Home Medication Medication Instructions Recorded Type Benztropine [Cogentin*] 1 mg PO TID 07/15/15 History Desmopressin Acetate [Ddavp] 0.1 mg PO TID 07/15/15 History Diphenhydramine HCL [Benadryl] 100 mg PO HS 07/15/15 History Fluvoxamine Maleate [Fluvoxamine 100 mg PO HS 07/15/15 History Maleate ER] Gabapentin [Neurontin*] 800 mg PO TID 07/15/15 History Lamotrigine [Lamictal*] 200 mg PO BID 07/15/15 History QUEtiapine Fumarate [SEROquel] 100 mg PO BID 07/15/15 History Vitamin E 400 iu PO BID 07/15/15 History chlorproMAZINE [Thorazine] 25 mg PO BID 07/15/15 History Clotrimazole 1% Cream [Lotrimin 1% 1 appl TP BID 06/11/16 History Cream] Levothyroxine [Synthroid] 0.025 mg PO QDAC 06/11/16 History Lorazepam 1 mg PO HS 06/11/16 History Multivitamin w/ Minerals 1 tab PO DAILY 06/11/16 History [Theragran M] Lactulose 15 ml PO BID 06/25/16 History QUEtiapine Fumarate [SEROquel] 300 mg PO HS 06/25/16 History Acetaminophen [Acetaminophen ER] 650 mg PO Q6H PRN 09/30/16 History Bacitracin Zinc [Antibiotic] 500 unit TP DAILY PRN 09/30/16 History Calcium Carbonate/Vitamin D3 1 each PO TID 09/30/16 History [Oyster Shell Calcium Tablet] Loperamide [Imodium] 2 mg PO PRN PRN 09/30/16 History Promethazine DM 6.25/15mg-5mL 2 tsp PO QID PRN 09/30/16 History [Phenergan DM 6.25/15mg-5 mL] Triamcinolone Acet 0.1% Cream 1 appl TP BID PRN 09/30/16 History [Kenalog 0.1%] Current Medications Generic Name Dose Route Start Last Admin Trade Name Freq PRN Reason Stop Dose Admin Acetaminophen 650 mg 10/01/16 00:06 Tylenol PO 11/30/16 00:05 Q6H PRN FEVER 100.1 OR HIGHER Bacitracin 1 appl 09/30/16 23:54 Baciquent TP 11/29/16 23:53 DAILY PRN SKIN INFECTION Benztropine Mesylate 1 mg 10/01/16 09:00 10/01/16 13:57 Cogentin PO 11/30/16 08:59 1 mg TID DIPTI Administration Calcium/Vitamin D 1 tab 10/01/16 09:00 10/01/16 13:56 Oscal W/Vitamin D PO 11/30/16 08:59 1 tab TID DIPTI Administration Chlorpromazine 25 mg 10/01/16 09:00 10/01/16 09:46 Thorazine PO 11/30/16 08:59 25 mg BID DIPTI Administration Protocol Clotrimazole 1 appl 10/01/16 00:00 Lotrimin 1% Cream TP 11/30/16 08:59 BID PRN skin infection Desmopressin Acetate 0.1 mg 10/01/16 09:00 10/01/16 09:46 Ddavp PO 11/30/16 08:59 0.1 mg TID DIPTI Administration Diphenhydramine HCl 100 mg 10/01/16 21:00 Benadryl PO 11/30/16 20:59 HS DIPTI Fluvoxamine Maleate 100 mg 10/01/16 21:00 Luvox PO 11/30/16 20:59 DAILY DIPTI Protocol Gabapentin 800 mg 10/01/16 09:00 10/01/16 13:57 Neurontin PO 11/30/16 08:59 800 mg TID DIPTI Administration Sodium Chloride 1,000 mls @ 125 mls/hr 09/30/16 22:30 10/01/16 00:32 Nacl 0.9% IV 11/29/16 22:29 125 mls/hr .Q8H DIPTI Administration Lactulose 10 gm 10/01/16 09:00 10/01/16 09:47 Cephulac PO 11/30/16 08:59 10 gm BID DIPTI Administration Lamotrigine 200 mg 10/01/16 09:00 10/01/16 09:47 Lamictal PO 11/30/16 08:59 200 mg BID DIPTI Administration Levothyroxine Sodium 0.025 mg 10/01/16 07:30 10/01/16 07:39 Synthroid PO 11/30/16 07:29 0.025 mg QDAC DIPTI Administration Loperamide HCl 2 mg 10/01/16 00:07 Imodium PO 11/30/16 00:06 PRN PRN Loose Stools Lorazepam 1 mg 09/30/16 21:00 10/01/16 07:36 Ativan PO 11/29/16 20:59 Not Given HS DIPTI Protocol Promethazine HCl/Dextromethorphan 10 ml 10/01/16 00:07 Phenergan Dm 6.25/15mg-5 Ml PO 11/30/16 00:06 QID PRN Cough Quetiapine Fumarate 300 mg 10/01/16 21:00 Seroquel PO 11/30/16 20:59 HS DIPTI Protocol Quetiapine Fumarate 100 mg 10/01/16 09:00 Seroquel PO 11/30/16 08:59 BID DIPTI Triamcinolone Acetonide 1 appl 10/01/16 00:07 Kenalog 0.1% TP 11/30/16 00:06 BID PRN Rash Vitamin E 400 iu 10/01/16 09:00 10/01/16 09:46 Vitamin E PO 11/30/16 08:59 400 iu BID DIPTI Administration Review of Systems: A 12 point ROS was reviewed with the pertinent positive and negatives noted in the HPI. Social History No history of alcohol or tobacco use, resides at [facility] Family Medical History Family Medical History Start: 09/30/16 20: 37 Freq: ONCE Status: Active Document 09/30/16 20:37 YPOLIVER (Rec: 10/01/16 03:48 YPOLIVER [id number]) Family Medical History Mother History Unknown Yes Physical Exam: General: Alert, No Acute Distress, cachectic HEENT: EOMI Bilaterally, PERRLA Bilaterally, Head is normocephalic, atraumatic on inspection. 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 Urinalysis revealed trace concentrated urine suggestive of antidiuretic property. Epilepsy, psychosis, neuropathy, incontinence Signed, Elliott Hess [id number]
[2016-10-01] MEDS ORDERED: FLUVOXAMINE MALEATE 100 MG PO SCH (21:00)
[2016-10-02 06:25] LABS: ANION GAP 8.8 (7.0-16.0); BUN - UREA NITROGEN 22 mg/dL (7-25); BUN/CREATININE RATIO 24.4; CALCIUM SERUM 9.5 mg/dL (8.6-10.3); CARBON DIOXIDE 26.9 mEq/L (21.0-31.0); CHLORIDE 100 mEq/L (98-107); CREATININE - SERUM 0.9 mg/dL (0.6-1.2); GLUCOSE 81 mg/dL (70-105); POTASSIUM SERUM 3.7 mEq/L (3.5-5.1); SODIUM SERUM 132 mEq/L (136-145); URIC ACID 2.3 mg/dL (2.3-6.6)
[2016-10-02] MEDS: Levothyroxine 0.025 Mg Tab PO SCH (07:00)
[2016-10-02] MEDS: Lactulose 10 Gm/15 mL 30mL UDC PO SCH ×2 (09:02→16:43)
[2016-10-02] MEDS: Multivitamin w/ Minerals Tab PO SCH (09:03)
[2016-10-02] MEDS: Calcium Carb/Vit D 500 mg/200 U Tab PO SCH ×3 (09:04→21:00)
--- NOTE | 2016-10-02 10:29 | General Progress Note ---
Subjective - Review of Systems Events since last encounter: patient with no distress admitted for hyponatremia Objective - Results Result Diagrams: 10/01/16 06:23 10/02/16 05:10 Recent Labs: Laboratory Last Values WBC 5.6 Th/cmm (4.8-10.8) 10/01/16 06:23 RBC 4.12 Mil/cmm (3.80-5.10) 10/01/16 06:23 Hgb 14.0 gm/dL (11.7-15.5) 10/01/16 06:23 Hct 41.7 % (35.0-45.0) 10/01/16 06:23 MCV 101.0 fl (81-100) H 10/01/16 06:23 MCH 34.1 pg (27.0-31.0) H 10/01/16 06:23 MCHC Differential 33.7 pg (28.0-36.0) 10/01/16 06:23 RDW 11.7 % (11.5-20.0) 10/01/16 06:23 Plt Count 218 Th/cmm (150-400) 10/01/16 06:23 MPV 7.4 fl 10/01/16 06:23 Neutrophils % 50.2 % (40.0-80.0) 10/01/16 06:23 Lymphocytes % 33.0 % (20.0-50.0) 10/01/16 06:23 Monocytes % 10.3 % (2.0-10.0) H 10/01/16 06:23 Eosinophils % 6.2 % (0.0-5.0) H 10/01/16 06:23 Basophils % 0.3 % (0.0-2.0) 10/01/16 06:23 PT 10.2 SECONDS (9.5-11.5) 09/30/16 18:34 INR 0.98 (0.5-1.4) 09/30/16 18:34 PTT (Actin FS) 25.0 SECONDS (26.0-38.0) L 09/30/16 18:34 Sodium 132 mEq/L (136-145) L 10/02/16 05:10 Potassium 3.7 mEq/L (3.5-5.1) 10/02/16 05:10 Chloride 100 mEq/L (98-107) 10/02/16 05:10 Carbon Dioxide 26.9 mEq/L (21.0-31.0) 10/02/16 05:10 Anion Gap 8.8 (7.0-16.0) 10/02/16 05:10 BUN 22 mg/dL (7-25) 10/02/16 05:10 Creatinine 0.9 mg/dL (0.6-1.2) 10/02/16 05:10 Est GFR ( Amer) > 60.0 ml/min (>90) 10/02/16 05:10 Est GFR (Non-Af Amer) > 60.0 ml/min 10/02/16 05:10 BUN/Creatinine Ratio 24.4 10/02/16 05:10 Glucose 81 mg/dL (70-105) 10/02/16 05:10 Uric Acid 2.3 mg/dL (2.3-6.6) 10/02/16 05:10 Calcium 9.5 mg/dL (8.6-10.3) 10/02/16 05:10 Total Bilirubin 0.5 mg/dL (0.3-1.0) 09/30/16 18:34 AST 24 U/L (13-39) 09/30/16 18:34 ALT 30 U/L (7-52) 09/30/16 18:34 Alkaline Phosphatase 109 U/L (34-104) H 09/30/16 18:34 Total Protein 7.3 gm/dL (6.0-8.3) 09/30/16 18:34 Albumin 4.4 gm/dL (3.7-5.3) 09/30/16 18:34 Globulin 2.9 gm/dL 09/30/16 18:34 Albumin/Globulin Ratio 1.5 (1.0-1.8) 09/30/16 18:34 Triglycerides 68 mg/dL (<150) 10/01/16 06:23 Cholesterol 131 mg/dL (<200) 10/01/16 06:23 LDL Cholesterol Direct 60 mg/dL (75-193) L 10/01/16 06:23 HDL Cholesterol 51 mg/dL (23-92) 10/01/16 06:23 TSH 4.58 uIU/ml (0.34-5.60) 10/01/16 06:23 Urine Source [place] 09/30/16 19:10 Urine Color YELLOW 09/30/16 19:10 Urine Clarity CLEAR (CLEAR) 09/30/16 19:10 Urine pH 6.5 09/30/16 19:10 Ur Specific [place] 1.020 (1.005-1.030) 09/30/16 19:10 Urine Protein NEGATIVE mg/dL (NEGATIVE) 09/30/16 19:10 Urine Glucose (UA) NEGATIVE mg/dL (NEGATIVE) 09/30/16 19:10 Urine Ketones NEGATIVE mg/dL (NEGATIVE) 09/30/16 19:10 Urine Blood SMALL (NEGATIVE) H 09/30/16 19:10 Urine Nitrate NEGATIVE (NEGATIVE) 09/30/16 19:10 Urine Bilirubin NEGATIVE (NEGATIVE) 09/30/16 19:10 Urine Urobilinogen 0.2 E.U./dL (0.2 - 1.0) 09/30/16 19:10 Ur Leukocyte Esterase NEGATIVE (NEGATIVE) 09/30/16 19:10 Urine RBC 2-5 /hpf (0-5) 09/30/16 19:10 Urine WBC 0-2 /hpf (0-5) 09/30/16 19:10 Ur Epithelial Cells RARE /lpf (FEW) 09/30/16 19:10 Amorphous Sediment FEW URATES (NONE SEEN) 09/30/16 19:10 Urine Bacteria FEW /hpf (NONE SEEN) 09/30/16 19:10 Urine Test NEGATIVE 09/30/16 19:10 - Physical Exam Vitals and I&O: Vital Signs Temp 97.3 F 10/02/16 04:00 Pulse 103 10/02/16 04:00 Resp 18 10/02/16 04:00 BP 101/72 10/02/16 04:00 Pulse Ox 94 10/02/16 04:00 Intake & Output 10/01/16 10/02/16 10/02/16 18:59 06:59 18:59 Intake Total 120 Output Total 550 Balance 120 -550 Weight (lbs) 58.423 kg 56.954 kg Intake: Oral 120 Output: Urine 550 Other: # Voids 1 # Bowel Movements 0 Active Medications: Current Medications Acetaminophen (Tylenol) 650 mg PO Q6H PRN PRN Reason: FEVER 100.1 OR HIGHER Stop: 11/30/16 00:05 Bacitracin (Baciquent) 1 appl TP DAILY PRN PRN Reason: SKIN INFECTION Stop: 11/29/16 23:53 Benztropine Mesylate (Cogentin) 1 mg PO TID DIPTI Stop: 11/30/16 08:59 Last Admin: 10/02/16 09:03 Dose: 1 mg Calcium/Vitamin D (Oscal W/Vitamin D) 1 tab PO TID DIPTI Stop: 11/30/16 08:59 Last Admin: 10/02/16 09:04 Dose: 1 tab Chlorpromazine (Thorazine) 25 mg PO BID DIPTI PRN Reason: Protocol Stop: 11/30/16 08:59 Last Admin: 10/02/16 09:03 Dose: 25 mg Clotrimazole (Lotrimin 1% Cream) 1 appl TP BID PRN PRN Reason: skin infection Stop: 11/30/16 08:59 Diphenhydramine HCl (Benadryl) 100 mg PO HS DIPTI Stop: 11/30/16 20:59 Last Admin: 10/01/16 21:38 Dose: 100 mg Fluvoxamine Maleate (Luvox) 100 mg PO DAILY DIPTI PRN Reason: Protocol Stop: 11/30/16 20:59 Last Admin: 10/02/16 09:03 Dose: 100 mg Gabapentin (Neurontin) 800 mg PO TID DIPTI Stop: 11/30/16 08:59 Last Admin: 10/02/16 09:04 Dose: 800 mg Lactulose (Cephulac) 10 gm PO BID DIPTI Stop: 11/30/16 08:59 Last Admin: 10/02/16 09:02 Dose: 10 gm Lamotrigine (Lamictal) 200 mg PO BID DIPTI Stop: 11/30/16 08:59 Last Admin: 10/02/16 09:03 Dose: 200 mg Levothyroxine Sodium (Synthroid) 0.025 mg PO QDAC DIPTI Stop: 11/30/16 07:29 Last Admin: 10/02/16 07:00 Dose: 0.025 mg Loperamide HCl (Imodium) 2 mg PO PRN PRN PRN Reason: Loose Stools Stop: 11/30/16 00:06 Lorazepam (Ativan) 1 mg PO HS DIPTI PRN Reason: Protocol Stop: 11/29/16 20:59 Last Admin: 10/01/16 22:19 Dose: 1 mg Promethazine HCl/Dextromethorphan (Phenergan Dm 6.25/15mg-5 Ml) 10 ml PO QID PRN PRN Reason: Cough Stop: 11/30/16 00:06 Quetiapine Fumarate (Seroquel) 300 mg PO HS DIPTI PRN Reason: Protocol Stop: 11/30/16 20:59 Last Admin: 10/01/16 21:37 Dose: 300 mg Quetiapine Fumarate (Seroquel) 100 mg PO BID DIPTI Stop: 11/30/16 08:59 Triamcinolone Acetonide (Kenalog 0.1%) 1 appl TP BID PRN PRN Reason: Rash Stop: 11/30/16 00:06 Vitamin E (Vitamin E) 400 iu PO BID DIPTI Stop: 11/30/16 08:59 Last Admin: 10/02/16 09:04 Dose: 400 iu General: No acute distress HEENT: Atraumatic Neck: Supple Cardiovascular: Regular rate - Procedures Procedures: Procedures Procedure Code Date CLOSURE SKIN & SUBCUTANEOUS NEC 86.59 09/08/10 RPR F/E/E/N/L/M 2.5 CM/< 70306 09/08/10 Assessment/Plan - Problem List Patient Problems: All Active Problems HYPONATREMIA (120) (Acute) Cerebral palsy (Acute) G80.9 Hyponatremia (Acute) E87.1 INTERMITTANT FOCAL SEIZURES (Acute) Seizure disorder (Acute) G40.909 Twitching (Acute) R25.3 hypokalemia (Acute) mental delay (Acute) toxic metabolic encephalopathy (Acute) uti (Acute) - Plan Plan: monitor vitals/diet labs f/up advisor consultant Nutritional Asmnt/Malnutr-PDOC - Dietary Evaluation Malnutrition Findings (Please click <Entered> for more info): Nutritional Asmnt/Malnutrition Start: 10/01/16 15: 25 Text: Status: Complete Freq: Document 10/01/16 15:25 GSUN (Rec: 10/01/16 15:39 [email or web address] [email or web address]) Nutritional Asmnt/Malnutrition Patient General Information Nutritional Screening High Risk Screening Diagnosis ER: hyponatremia, dehydration Pertinent Medical Hx/Surgical Hx ER: thyroid disorder, dementia Subjective Information 51 year old female from SNF. Unable to itnerview due to cognition. Pt made eye contact with RD, moving all 4 extremities. Difficult to perform physical assessment due to constant movement and cognition, thin overall, no severe wasting noted. Spoke to HEAD WRESTLING COACH at bedside, HEAD WRESTLING COACH stated pt with great appetite, finished 100% breakfast and lunch, no difficulties noted, meeting nutritional needs. Current Diet Order/ Nutrition Support [facility] soft ground Pertinent Medications Oscal W/Vitamin D, Cephulac, Synthroid, Seroquel, Nacl 0.9% , Vitamin E Pertinent Labs Reviewed. Nutritional Hx/Data Height 1.6 m Height (Calculated Centimeters) 160.0 Current Weight (lbs) 58.423 kg Weight (Calculated Kilograms) 58.4 Weight (Calculated Grams) 90176.7 [place] Body Weight 115 Weight Status Approriate GI Symptoms Food Allergies No Skin Integrity/Comment: Walter 15. Right finger open wound from pt biting. Current %PO Good (75-100%) Estimated Nutritional Goals BEE in Kcals: Using Current wt Calories/Kcals/Kg CBW 128.8lb/58.5kg Kcals Calculated 1463-1755kcal (25-30kcal/kg) Protein: Using Current wt Protein Calculated 47-59g (0.8-1g/kg) Fluid: ml 1463-1755ml (1ml/kcal) Nutritional Problem 1. Problem Problem No nutritional problem at this time. Intervention/Recommendation Comments 1. Continue with current diet order. Avg PO intake is adequate. Expected Outcomes/Goals Expected Outcomes/Goals 1. PO intake conitnue to meet at least 75% of estimated nutritional needs.
--- NOTE | 2016-10-02 11:33 | General Progress Note ---
Subjective - Review of Systems Service Date: 10/02/16 Subjective: alert, smiling, comfortable Objective - Results Result Diagrams: 10/01/16 06:23 10/02/16 05:10 Recent Labs: Laboratory Last Values WBC 5.6 Th/cmm (4.8-10.8) 10/01/16 06:23 RBC 4.12 Mil/cmm (3.80-5.10) 10/01/16 06:23 Hgb 14.0 gm/dL (11.7-15.5) 10/01/16 06:23 Hct 41.7 % (35.0-45.0) 10/01/16 06:23 MCV 101.0 fl (81-100) H 10/01/16 06:23 MCH 34.1 pg (27.0-31.0) H 10/01/16 06:23 MCHC Differential 33.7 pg (28.0-36.0) 10/01/16 06:23 RDW 11.7 % (11.5-20.0) 10/01/16 06:23 Plt Count 218 Th/cmm (150-400) 10/01/16 06:23 MPV 7.4 fl 10/01/16 06:23 Neutrophils % 50.2 % (40.0-80.0) 10/01/16 06:23 Lymphocytes % 33.0 % (20.0-50.0) 10/01/16 06:23 Monocytes % 10.3 % (2.0-10.0) H 10/01/16 06:23 Eosinophils % 6.2 % (0.0-5.0) H 10/01/16 06:23 Basophils % 0.3 % (0.0-2.0) 10/01/16 06:23 PT 10.2 SECONDS (9.5-11.5) 09/30/16 18:34 INR 0.98 (0.5-1.4) 09/30/16 18:34 PTT (Actin FS) 25.0 SECONDS (26.0-38.0) L 09/30/16 18:34 Sodium 132 mEq/L (136-145) L 10/02/16 05:10 Potassium 3.7 mEq/L (3.5-5.1) 10/02/16 05:10 Chloride 100 mEq/L (98-107) 10/02/16 05:10 Carbon Dioxide 26.9 mEq/L (21.0-31.0) 10/02/16 05:10 Anion Gap 8.8 (7.0-16.0) 10/02/16 05:10 BUN 22 mg/dL (7-25) 10/02/16 05:10 Creatinine 0.9 mg/dL (0.6-1.2) 10/02/16 05:10 Est GFR ( Amer) > 60.0 ml/min (>90) 10/02/16 05:10 Est GFR (Non-Af Amer) > 60.0 ml/min 10/02/16 05:10 BUN/Creatinine Ratio 24.4 10/02/16 05:10 Glucose 81 mg/dL (70-105) 10/02/16 05:10 Uric Acid 2.3 mg/dL (2.3-6.6) 10/02/16 05:10 Calcium 9.5 mg/dL (8.6-10.3) 10/02/16 05:10 Total Bilirubin 0.5 mg/dL (0.3-1.0) 09/30/16 18:34 AST 24 U/L (13-39) 09/30/16 18:34 ALT 30 U/L (7-52) 09/30/16 18:34 Alkaline Phosphatase 109 U/L (34-104) H 09/30/16 18:34 Total Protein 7.3 gm/dL (6.0-8.3) 09/30/16 18:34 Albumin 4.4 gm/dL (3.7-5.3) 09/30/16 18:34 Globulin 2.9 gm/dL 09/30/16 18:34 Albumin/Globulin Ratio 1.5 (1.0-1.8) 09/30/16 18:34 Triglycerides 68 mg/dL (<150) 10/01/16 06:23 Cholesterol 131 mg/dL (<200) 10/01/16 06:23 LDL Cholesterol Direct 60 mg/dL (75-193) L 10/01/16 06:23 HDL Cholesterol 51 mg/dL (23-92) 10/01/16 06:23 TSH 4.58 uIU/ml (0.34-5.60) 10/01/16 06:23 Urine Source [place] 09/30/16 19:10 Urine Color YELLOW 09/30/16 19:10 Urine Clarity CLEAR (CLEAR) 09/30/16 19:10 Urine pH 6.5 09/30/16 19:10 Ur Specific [place] 1.020 (1.005-1.030) 09/30/16 19:10 Urine Protein NEGATIVE mg/dL (NEGATIVE) 09/30/16 19:10 Urine Glucose (UA) NEGATIVE mg/dL (NEGATIVE) 09/30/16 19:10 Urine Ketones NEGATIVE mg/dL (NEGATIVE) 09/30/16 19:10 Urine Blood SMALL (NEGATIVE) H 09/30/16 19:10 Urine Nitrate NEGATIVE (NEGATIVE) 09/30/16 19:10 Urine Bilirubin NEGATIVE (NEGATIVE) 09/30/16 19:10 Urine Urobilinogen 0.2 E.U./dL (0.2 - 1.0) 09/30/16 19:10 Ur Leukocyte Esterase NEGATIVE (NEGATIVE) 09/30/16 19:10 Urine RBC 2-5 /hpf (0-5) 09/30/16 19:10 Urine WBC 0-2 /hpf (0-5) 09/30/16 19:10 Ur Epithelial Cells RARE /lpf (FEW) 09/30/16 19:10 Amorphous Sediment FEW URATES (NONE SEEN) 09/30/16 19:10 Urine Bacteria FEW /hpf (NONE SEEN) 09/30/16 19:10 Urine Test NEGATIVE 09/30/16 19:10 - Physical Exam Vitals and I&O: Vital Signs Temp 97.3 F 10/02/16 04:00 Pulse 103 10/02/16 04:00 Resp 18 10/02/16 04:00 BP 101/72 10/02/16 04:00 Pulse Ox 94 10/02/16 04:00 Intake & Output 10/01/16 10/02/16 10/02/16 18:59 06:59 18:59 Intake Total 120 Output Total 550 Balance 120 -550 Weight (lbs) 58.423 kg 56.954 kg Intake: Oral 120 Output: Urine 550 Other: # Voids 1 # Bowel Movements 0 Active Medications: Current Medications Acetaminophen (Tylenol) 650 mg PO Q6H PRN PRN Reason: FEVER 100.1 OR HIGHER Stop: 11/30/16 00:05 Bacitracin (Baciquent) 1 appl TP DAILY PRN PRN Reason: SKIN INFECTION Stop: 11/29/16 23:53 Benztropine Mesylate (Cogentin) 1 mg PO TID DIPTI Stop: 11/30/16 08:59 Last Admin: 10/02/16 09:03 Dose: 1 mg Calcium/Vitamin D (Oscal W/Vitamin D) 1 tab PO TID DIPTI Stop: 11/30/16 08:59 Last Admin: 10/02/16 09:04 Dose: 1 tab Chlorpromazine (Thorazine) 25 mg PO BID DIPTI PRN Reason: Protocol Stop: 11/30/16 08:59 Last Admin: 10/02/16 09:03 Dose: 25 mg Clotrimazole (Lotrimin 1% Cream) 1 appl TP BID PRN PRN Reason: skin infection Stop: 11/30/16 08:59 Diphenhydramine HCl (Benadryl) 100 mg PO HS [facility] Stop: 11/30/16 20:59 Last Admin: 10/01/16 21:38 Dose: 100 mg Fluvoxamine Maleate (Luvox) 100 mg PO DAILY DIPTI PRN Reason: Protocol Stop: 11/30/16 20:59 Last Admin: 10/02/16 09:03 Dose: 100 mg Gabapentin (Neurontin) 800 mg PO TID [facility] Stop: 11/30/16 08:59 Last Admin: 10/02/16 09:04 Dose: 800 mg Lactulose (Cephulac) 10 gm PO BID [facility]ITPI Stop: 11/30/16 08:59 Last Admin: 10/02/16 09:02 Dose: 10 gm Lamotrigine (Lamictal) 200 mg PO BID DIPTI Stop: 11/30/16 08:59 Last Admin: 10/02/16 09:03 Dose: 200 mg Levothyroxine Sodium (Synthroid) 0.025 mg PO QDAC DIPTI Stop: 11/30/16 07:29 Last Admin: 10/02/16 07:00 Dose: 0.025 mg Loperamide HCl (Imodium) 2 mg PO PRN PRN PRN Reason: Loose Stools Stop: 11/30/16 00:06 Lorazepam (Ativan) 1 mg PO HS DIPTI PRN Reason: Protocol Stop: 11/29/16 20:59 Last Admin: 10/01/16 22:19 Dose: 1 mg Promethazine HCl/Dextromethorphan (Phenergan Dm 6.25/15mg-5 Ml) 10 ml PO QID PRN PRN Reason: Cough Stop: 11/30/16 00:06 Quetiapine Fumarate (Seroquel) 300 mg PO HS DIPTI PRN Reason: Protocol Stop: 11/30/16 20:59 Last Admin: 10/01/16 21:37 Dose: 300 mg Quetiapine Fumarate (Seroquel) 100 mg PO BID DIPTI Stop: 11/30/16 08:59 Triamcinolone Acetonide (Kenalog 0.1%) 1 appl TP BID PRN PRN Reason: Rash Stop: 11/30/16 00:06 Vitamin E (Vitamin E) 400 iu PO BID [facility] Stop: 11/30/16 08:59 Last Admin: 10/02/16 09:04 Dose: 400 iu General: Alert, No acute distress HEENT: Atraumatic, EOMI, Mucous membr. moist/pink Neck: Supple, +2 carotid pulse wo bruit Cardiovascular: Regular rate, Normal S1, Normal S2 Lungs: Clear to auscultation Abdomen: Bowel sounds, Soft Extremities: no Edema Neurological: Strength at 5/5 X4 ext, Sensation intact Skin: no Rash Psych/Mental Status: Mood NL - Procedures Procedures: Procedures Procedure Code Date CLOSURE SKIN & SUBCUTANEOUS NEC 86.59 09/08/10 RPR F/E/E/N/L/M 2.5 CM/< 85356 09/08/10 Assessment/Plan - Problem List Patient Problems: All Active Problems HYPONATREMIA (120) (Acute) Cerebral palsy (Acute) G80.9 Hyponatremia (Acute) E87.1 INTERMITTANT FOCAL SEIZURES (Acute) Seizure disorder (Acute) G40.909 Twitching (Acute) R25.3 hypokalemia (Acute) mental delay (Acute) toxic metabolic encephalopathy (Acute) uti (Acute) - Assessment Assessment: hyponatremia 2nd to Desmopressin Epilepsy Hypopthyroid Dementia w/ behavior modification - Plan Plan: Lab - Result Diagrams 10/01/16 06:23 10/02/16 05:10 Current Medications Acetaminophen (Tylenol) 650 mg PO Q6H PRN PRN Reason: FEVER 100.1 OR HIGHER Stop: 11/30/16 00:05 Bacitracin (Baciquent) 1 appl TP DAILY PRN PRN Reason: SKIN INFECTION Stop: 11/29/16 23:53 Benztropine Mesylate (Cogentin) 1 mg PO TID DIPTI Stop: 11/30/16 08:59 Last Admin: 10/02/16 09:03 Dose: 1 mg Calcium/Vitamin D (Oscal W/Vitamin D) 1 tab PO TID DIPTI Stop: 11/30/16 08:59 Last Admin: 10/02/16 09:04 Dose: 1 tab Chlorpromazine (Thorazine) 25 mg PO BID DIPTI PRN Reason: Protocol Stop: 11/30/16 08:59 Last Admin: 10/02/16 09:03 Dose: 25 mg Clotrimazole (Lotrimin 1% Cream) 1 appl TP BID PRN PRN Reason: skin infection Stop: 11/30/16 08:59 Diphenhydramine HCl (Benadryl) 100 mg PO HS DIPTI Stop: 11/30/16 20:59 Last Admin: 10/01/16 21:38 Dose: 100 mg Fluvoxamine Maleate (Luvox) 100 mg PO DAILY DIPTI PRN Reason: Protocol Stop: 11/30/16 20:59 Last Admin: 10/02/16 09:03 Dose: 100 mg Gabapentin (Neurontin) 800 mg PO TID DIPTI Stop: 11/30/16 08:59 Last Admin: 10/02/16 09:04 Dose: 800 mg Lactulose (Cephulac) 10 gm PO BID DIPTI Stop: 11/30/16 08:59 Last Admin: 10/02/16 09:02 Dose: 10 gm Lamotrigine (Lamictal) 200 mg PO BID DIPTI Stop: 11/30/16 08:59 Last Admin: 10/02/16 09:03 Dose: 200 mg Levothyroxine Sodium (Synthroid) 0.025 mg PO QDAC DIPTI Stop: 11/30/16 07:29 Last Admin: 10/02/16 07:00 Dose: 0.025 mg Loperamide HCl (Imodium) 2 mg PO PRN PRN PRN Reason: Loose Stools Stop: 11/30/16 00:06 Lorazepam (Ativan) 1 mg PO HS DIPTI PRN Reason: Protocol Stop: 11/29/16 20:59 Last Admin: 10/01/16 22:19 Dose: 1 mg Promethazine HCl/Dextromethorphan (Phenergan Dm 6.25/15mg-5 Ml) 10 ml PO QID PRN PRN Reason: Cough Stop: 11/30/16 00:06 Quetiapine Fumarate (Seroquel) 300 mg PO HS DIPTI PRN Reason: Protocol Stop: 11/30/16 20:59 Last Admin: 10/01/16 21:37 Dose: 300 mg Quetiapine Fumarate (Seroquel) 100 mg PO BID DIPTI Stop: 11/30/16 08:59 Triamcinolone Acetonide (Kenalog 0.1%) 1 appl TP BID PRN PRN Reason: Rash Stop: 11/30/16 00:06 Vitamin E (Vitamin E) 400 iu PO BID DIPTI Stop: 11/30/16 08:59 Last Admin: 10/02/16 09:04 Dose: 400 iu Lab - Result Diagrams 10/01/16 06:23 10/02/16 05:10 Na up to 132 Maintiain of IVF Dc'ed Desmopressin f/u electrolytes Nutritional Asmnt/Malnutr-PDOC - Dietary Evaluation Malnutrition Findings (Please click <Entered> for more info): Nutritional Asmnt/Malnutrition Start: 10/01/16 15: 25 Text: Status: Complete Freq: Document 10/01/16 15:25 GSUN (Rec: 10/01/16 15:39 GSUN [email or web address]) Nutritional Asmnt/Malnutrition Patient General Information Nutritional Screening High Risk Screening Diagnosis ER: hyponatremia, dehydration Pertinent Medical Hx/Surgical Hx ER: thyroid disorder, dementia Subjective Information 51 year old female from SNF. Unable to itnerview due to cognition. Pt made eye contact with RD, moving all 4 extremities. Difficult to perform physical assessment due to constant movement and cognition, thin overall, no severe wasting noted. Spoke to BURIAL NEEDS SALESPERSON at bedside, BURIAL NEEDS SALESPERSON stated pt with great appetite, finished 100% breakfast and lunch, no difficulties noted, meeting nutritional needs. Current Diet Order/ Nutrition Support [facility] soft ground Pertinent Medications Oscal W/Vitamin D, Cephulac, Synthroid, Seroquel, Nacl 0.9% , Vitamin E Pertinent Labs Reviewed. Nutritional Hx/Data Height 1.6 m Height (Calculated Centimeters) 160.0 Current Weight (lbs) 58.423 kg Weight (Calculated Kilograms) 58.4 Weight (Calculated Grams) 26763.7 [place] Body Weight 115 Weight Status Approriate GI Symptoms Food Allergies No Skin Integrity/Comment: Walter 15. Right finger open wound from pt biting. Current %PO Good (75-100%) Estimated Nutritional Goals BEE in Kcals: Using Current wt Calories/Kcals/Kg CBW 128.8lb/58.5kg Kcals Calculated 1463-1755kcal (25-30kcal/kg) Protein: Using Current wt Protein Calculated 47-59g (0.8-1g/kg) Fluid: ml 1463-1755ml (1ml/kcal) Nutritional Problem 1. Problem Problem No nutritional problem at this time. Intervention/Recommendation Comments 1. Continue with current diet order. Avg PO intake is adequate. Expected Outcomes/Goals Expected Outcomes/Goals 1. PO intake conitnue to meet at least 75% of estimated nutritional needs.
[2016-10-03] MEDS: Levothyroxine 0.025 Mg Tab PO SCH (08:00)
--- NOTE | 2016-10-03 09:15 | General Progress Note ---
Subjective - Review of Systems Events since last encounter: no distress Objective - Results Result Diagrams: 10/01/16 06:23 10/02/16 05:10 Recent Labs: Laboratory Last Values WBC 5.6 Th/cmm (4.8-10.8) 10/01/16 06:23 RBC 4.12 Mil/cmm (3.80-5.10) 10/01/16 06:23 Hgb 14.0 gm/dL (11.7-15.5) 10/01/16 06:23 Hct 41.7 % (35.0-45.0) 10/01/16 06:23 MCV 101.0 fl (81-100) H 10/01/16 06:23 MCH 34.1 pg (27.0-31.0) H 10/01/16 06:23 MCHC Differential 33.7 pg (28.0-36.0) 10/01/16 06:23 RDW 11.7 % (11.5-20.0) 10/01/16 06:23 Plt Count 218 Th/cmm (150-400) 10/01/16 06:23 MPV 7.4 fl 10/01/16 06:23 Neutrophils % 50.2 % (40.0-80.0) 10/01/16 06:23 Lymphocytes % 33.0 % (20.0-50.0) 10/01/16 06:23 Monocytes % 10.3 % (2.0-10.0) H 10/01/16 06:23 Eosinophils % 6.2 % (0.0-5.0) H 10/01/16 06:23 Basophils % 0.3 % (0.0-2.0) 10/01/16 06:23 PT 10.2 SECONDS (9.5-11.5) 09/30/16 18:34 INR 0.98 (0.5-1.4) 09/30/16 18:34 PTT (Actin FS) 25.0 SECONDS (26.0-38.0) L 09/30/16 18:34 Sodium 132 mEq/L (136-145) L 10/02/16 05:10 Potassium 3.7 mEq/L (3.5-5.1) 10/02/16 05:10 Chloride 100 mEq/L (98-107) 10/02/16 05:10 Carbon Dioxide 26.9 mEq/L (21.0-31.0) 10/02/16 05:10 Anion Gap 8.8 (7.0-16.0) 10/02/16 05:10 BUN 22 mg/dL (7-25) 10/02/16 05:10 Creatinine 0.9 mg/dL (0.6-1.2) 10/02/16 05:10 Est GFR ( Amer) > 60.0 ml/min (>90) 10/02/16 05:10 Est GFR (Non-Af Amer) > 60.0 ml/min 10/02/16 05:10 BUN/Creatinine Ratio 24.4 10/02/16 05:10 Glucose 81 mg/dL (70-105) 10/02/16 05:10 Uric Acid 2.3 mg/dL (2.3-6.6) 10/02/16 05:10 Calcium 9.5 mg/dL (8.6-10.3) 10/02/16 05:10 Total Bilirubin 0.5 mg/dL (0.3-1.0) 09/30/16 18:34 AST 24 U/L (13-39) 09/30/16 18:34 ALT 30 U/L (7-52) 09/30/16 18:34 Alkaline Phosphatase 109 U/L (34-104) H 09/30/16 18:34 Total Protein 7.3 gm/dL (6.0-8.3) 09/30/16 18:34 Albumin 4.4 gm/dL (3.7-5.3) 09/30/16 18:34 Globulin 2.9 gm/dL 09/30/16 18:34 Albumin/Globulin Ratio 1.5 (1.0-1.8) 09/30/16 18:34 Triglycerides 68 mg/dL (<150) 10/01/16 06:23 Cholesterol 131 mg/dL (<200) 10/01/16 06:23 LDL Cholesterol Direct 60 mg/dL (75-193) L 10/01/16 06:23 HDL Cholesterol 51 mg/dL (23-92) 10/01/16 06:23 TSH 4.58 uIU/ml (0.34-5.60) 10/01/16 06:23 Urine Source [place] 09/30/16 19:10 Urine Color YELLOW 09/30/16 19:10 Urine Clarity CLEAR (CLEAR) 09/30/16 19:10 Urine pH 6.5 09/30/16 19:10 Ur Specific [place] 1.020 (1.005-1.030) 09/30/16 19:10 Urine Protein NEGATIVE mg/dL (NEGATIVE) 09/30/16 19:10 Urine Glucose (UA) NEGATIVE mg/dL (NEGATIVE) 09/30/16 19:10 Urine Ketones NEGATIVE mg/dL (NEGATIVE) 09/30/16 19:10 Urine Blood SMALL (NEGATIVE) H 09/30/16 19:10 Urine Nitrate NEGATIVE (NEGATIVE) 09/30/16 19:10 Urine Bilirubin NEGATIVE (NEGATIVE) 09/30/16 19:10 Urine Urobilinogen 0.2 E.U./dL (0.2 - 1.0) 09/30/16 19:10 Ur Leukocyte Esterase NEGATIVE (NEGATIVE) 09/30/16 19:10 Urine RBC 2-5 /hpf (0-5) 09/30/16 19:10 Urine WBC 0-2 /hpf (0-5) 09/30/16 19:10 Ur Epithelial Cells RARE /lpf (FEW) 09/30/16 19:10 Amorphous Sediment FEW URATES (NONE SEEN) 09/30/16 19:10 Urine Bacteria FEW /hpf (NONE SEEN) 09/30/16 19:10 Ur Random Sodium 57 mmol/L 10/02/16 11:30 Urine Test NEGATIVE 09/30/16 19:10 - Physical Exam Vitals and I&O: Vital Signs Temp 97.0 F 10/03/16 08:00 Pulse 97 10/03/16 08:00 Resp 18 10/03/16 08:00 BP 118/70 10/03/16 08:00 Pulse Ox 98 10/03/16 08:00 Intake & Output 10/02/16 10/03/16 10/03/16 18:59 06:59 18:59 Intake Total 650 Output Total 400 300 Balance 250 -300 Weight (lbs) 56.954 kg 56.699 kg Intake: Oral 650 Output: Urine 400 Other 300 Other: # Bowel Movements 0 Active Medications: Current Medications Acetaminophen (Tylenol) 650 mg PO Q6H PRN PRN Reason: FEVER 100.1 OR HIGHER Stop: 11/30/16 00:05 Bacitracin (Baciquent) 1 appl TP DAILY PRN PRN Reason: SKIN INFECTION Stop: 11/29/16 23:53 Benztropine Mesylate (Cogentin) 1 mg PO TID DIPTI Stop: 11/30/16 08:59 Last Admin: 10/02/16 21:00 Dose: 1 mg Calcium/Vitamin D (Oscal W/Vitamin D) 1 tab PO TID DIPTI Stop: 11/30/16 08:59 Last Admin: 10/02/16 21:00 Dose: 1 tab Chlorpromazine (Thorazine) 50 mg PO BID DIPTI PRN Reason: Protocol Stop: 11/30/16 08:59 Clotrimazole (Lotrimin 1% Cream) 1 appl TP BID PRN PRN Reason: skin infection Stop: 11/30/16 08:59 Diphenhydramine HCl (Benadryl) 100 mg PO HS [facility] Stop: 11/30/16 20:59 Last Admin: 10/02/16 21:00 Dose: 100 mg Fluvoxamine Maleate (Luvox) 100 mg PO DAILY DIPTI PRN Reason: Protocol Stop: 11/30/16 20:59 Last Admin: 10/02/16 09:03 Dose: 100 mg Gabapentin (Neurontin) 800 mg PO TID [facility] Stop: 11/30/16 08:59 Last Admin: 10/02/16 21:03 Dose: 800 mg Lactulose (Cephulac) 10 gm PO BID DIPTI Stop: 11/30/16 08:59 Last Admin: 10/02/16 16:43 Dose: 10 gm Lamotrigine (Lamictal) 200 mg PO BID DIPTI Stop: 11/30/16 08:59 Last Admin: 10/02/16 16:44 Dose: 200 mg Levothyroxine Sodium (Synthroid) 0.025 mg PO QDAC DIPTI Stop: 11/30/16 07:29 Last Admin: 10/03/16 08:00 Dose: 0.025 mg Loperamide HCl (Imodium) 2 mg PO PRN PRN PRN Reason: Loose Stools Stop: 11/30/16 00:06 Lorazepam (Ativan) 1 mg PO HS DIPTI PRN Reason: Protocol Stop: 11/29/16 20:59 Last Admin: 10/02/16 21:00 Dose: 1 mg Mupirocin (Bactroban Oint) 1 appl TP BID DIPTI Stop: 10/07/16 16:59 Last Admin: 10/02/16 17:36 Dose: 1 appl Promethazine HCl/Dextromethorphan (Phenergan Dm 6.25/15mg-5 Ml) 10 ml PO QID PRN PRN Reason: Cough Stop: 11/30/16 00:06 Quetiapine Fumarate (Seroquel) 300 mg PO HS DIPTI PRN Reason: Protocol Stop: 11/30/16 20:59 Last Admin: 10/02/16 21:01 Dose: 300 mg Quetiapine Fumarate (Seroquel) 100 mg PO BID DIPTI Stop: 11/30/16 08:59 Last Admin: 10/02/16 17:36 Dose: 100 mg Triamcinolone Acetonide (Kenalog 0.1%) 1 appl TP BID PRN PRN Reason: Rash Stop: 11/30/16 00:06 Vitamin E (Vitamin E) 400 iu PO BID [facility] Stop: 11/30/16 08:59 Last Admin: 10/02/16 16:44 Dose: 400 iu General: No acute distress Neck: Supple Cardiovascular: Regular rate, Normal S1, Normal S2 Abdomen: Bowel sounds - Procedures Procedures: Procedures Procedure Code Date CLOSURE SKIN & SUBCUTANEOUS NEC 86.59 09/08/10 RPR F/E/E/N/L/M 2.5 CM/< 22165 09/08/10 Assessment/Plan - Problem List Patient Problems: All Active Problems HYPONATREMIA (120) (Acute) Cerebral palsy (Acute) G80.9 Hyponatremia (Acute) E87.1 INTERMITTANT FOCAL SEIZURES (Acute) Seizure disorder (Acute) G40.909 Twitching (Acute) R25.3 hypokalemia (Acute) mental delay (Acute) toxic metabolic encephalopathy (Acute) uti (Acute) - Plan Plan: monitor vitals/diet labs f/up c consultant Nutritional Asmnt/Malnutr-PDOC - Dietary Evaluation Malnutrition Findings (Please click <Entered> for more info): Nutritional Asmnt/Malnutrition Start: 10/01/16 15: 25 Text: Status: Complete Freq: Document 10/01/16 15:25 GSUN (Rec: 10/01/16 15:39 GSUN [email or web address]) Nutritional Asmnt/Malnutrition Patient General Information Nutritional Screening High Risk Screening Diagnosis ER: hyponatremia, dehydration Pertinent Medical Hx/Surgical Hx ER: thyroid disorder, dementia Subjective Information 51 year old female from SNF. Unable to itnerview due to cognition. Pt made eye contact with RD, moving all 4 extremities. Difficult to perform physical assessment due to constant movement and cognition, thin overall, no severe wasting noted. Spoke to CARRY OUT CLERK AND SHELF STOCKER at bedside, CARRY OUT CLERK AND SHELF STOCKER stated pt with great appetite, finished 100% breakfast and lunch, no difficulties noted, meeting nutritional needs. Current Diet Order/ Nutrition Support [facility] soft ground Pertinent Medications Oscal W/Vitamin D, Cephulac, Synthroid, Seroquel, Nacl 0.9% , Vitamin E Pertinent Labs Reviewed. Nutritional Hx/Data Height 1.6 m Height (Calculated Centimeters) 160.0 Current Weight (lbs) 58.423 kg Weight (Calculated Kilograms) 58.4 Weight (Calculated Grams) 46003.7 [place] Body Weight 115 Weight Status Approriate GI Symptoms Food Allergies No Skin Integrity/Comment: Walter 15. Right finger open wound from pt biting. Current %PO Good (75-100%) Estimated Nutritional Goals BEE in Kcals: Using Current wt Calories/Kcals/Kg CBW 128.8lb/58.5kg Kcals Calculated 1463-1755kcal (25-30kcal/kg) Protein: Using Current wt Protein Calculated 47-59g (0.8-1g/kg) Fluid: ml 1463-1755ml (1ml/kcal) Nutritional Problem 1. Problem Problem No nutritional problem at this time. Intervention/Recommendation Comments 1. Continue with current diet order. Avg PO intake is adequate. Expected Outcomes/Goals Expected Outcomes/Goals 1. PO intake conitnue to meet at least 75% of estimated nutritional needs.
[2016-10-03] MEDS: Calcium Carb/Vit D 500 mg/200 U Tab PO SCH (09:54)
[2016-10-03] MEDS: Multivitamin w/ Minerals Tab PO SCH (09:54)
[2016-10-03] MEDS: Lactulose 10 Gm/15 mL 30mL UDC PO SCH (09:55)
--- NOTE | 2016-10-03 14:09 | General Progress Note ---
Subjective - Review of Systems Service Date: 10/03/16 Subjective: alert, smiling, comfortable Objective - Results Result Diagrams: 10/01/16 06:23 10/02/16 05:10 Recent Labs: Laboratory Last Values WBC 5.6 Th/cmm (4.8-10.8) 10/01/16 06:23 RBC 4.12 Mil/cmm (3.80-5.10) 10/01/16 06:23 Hgb 14.0 gm/dL (11.7-15.5) 10/01/16 06:23 Hct 41.7 % (35.0-45.0) 10/01/16 06:23 MCV 101.0 fl (81-100) H 10/01/16 06:23 MCH 34.1 pg (27.0-31.0) H 10/01/16 06:23 MCHC Differential 33.7 pg (28.0-36.0) 10/01/16 06:23 RDW 11.7 % (11.5-20.0) 10/01/16 06:23 Plt Count 218 Th/cmm (150-400) 10/01/16 06:23 MPV 7.4 fl 10/01/16 06:23 Neutrophils % 50.2 % (40.0-80.0) 10/01/16 06:23 Lymphocytes % 33.0 % (20.0-50.0) 10/01/16 06:23 Monocytes % 10.3 % (2.0-10.0) H 10/01/16 06:23 Eosinophils % 6.2 % (0.0-5.0) H 10/01/16 06:23 Basophils % 0.3 % (0.0-2.0) 10/01/16 06:23 PT 10.2 SECONDS (9.5-11.5) 09/30/16 18:34 INR 0.98 (0.5-1.4) 09/30/16 18:34 PTT (Actin FS) 25.0 SECONDS (26.0-38.0) L 09/30/16 18:34 Sodium 132 mEq/L (136-145) L 10/02/16 05:10 Potassium 3.7 mEq/L (3.5-5.1) 10/02/16 05:10 Chloride 100 mEq/L (98-107) 10/02/16 05:10 Carbon Dioxide 26.9 mEq/L (21.0-31.0) 10/02/16 05:10 Anion Gap 8.8 (7.0-16.0) 10/02/16 05:10 BUN 22 mg/dL (7-25) 10/02/16 05:10 Creatinine 0.9 mg/dL (0.6-1.2) 10/02/16 05:10 Est GFR ( Amer) > 60.0 ml/min (>90) 10/02/16 05:10 Est GFR (Non-Af Amer) > 60.0 ml/min 10/02/16 05:10 BUN/Creatinine Ratio 24.4 10/02/16 05:10 Glucose 81 mg/dL (70-105) 10/02/16 05:10 Uric Acid 2.3 mg/dL (2.3-6.6) 10/02/16 05:10 Calcium 9.5 mg/dL (8.6-10.3) 10/02/16 05:10 Total Bilirubin 0.5 mg/dL (0.3-1.0) 09/30/16 18:34 AST 24 U/L (13-39) 09/30/16 18:34 ALT 30 U/L (7-52) 09/30/16 18:34 Alkaline Phosphatase 109 U/L (34-104) H 09/30/16 18:34 Total Protein 7.3 gm/dL (6.0-8.3) 09/30/16 18:34 Albumin 4.4 gm/dL (3.7-5.3) 09/30/16 18:34 Globulin 2.9 gm/dL 09/30/16 18:34 Albumin/Globulin Ratio 1.5 (1.0-1.8) 09/30/16 18:34 Triglycerides 68 mg/dL (<150) 10/01/16 06:23 Cholesterol 131 mg/dL (<200) 10/01/16 06:23 LDL Cholesterol Direct 60 mg/dL (75-193) L 10/01/16 06:23 HDL Cholesterol 51 mg/dL (23-92) 10/01/16 06:23 TSH 4.58 uIU/ml (0.34-5.60) 10/01/16 06:23 Urine Source [place] 09/30/16 19:10 Urine Color YELLOW 09/30/16 19:10 Urine Clarity CLEAR (CLEAR) 09/30/16 19:10 Urine pH 6.5 09/30/16 19:10 Ur Specific [place] 1.020 (1.005-1.030) 09/30/16 19:10 Urine Protein NEGATIVE mg/dL (NEGATIVE) 09/30/16 19:10 Urine Glucose (UA) NEGATIVE mg/dL (NEGATIVE) 09/30/16 19:10 Urine Ketones NEGATIVE mg/dL (NEGATIVE) 09/30/16 19:10 Urine Blood SMALL (NEGATIVE) H 09/30/16 19:10 Urine Nitrate NEGATIVE (NEGATIVE) 09/30/16 19:10 Urine Bilirubin NEGATIVE (NEGATIVE) 09/30/16 19:10 Urine Urobilinogen 0.2 E.U./dL (0.2 - 1.0) 09/30/16 19:10 Ur Leukocyte Esterase NEGATIVE (NEGATIVE) 09/30/16 19:10 Urine RBC 2-5 /hpf (0-5) 09/30/16 19:10 Urine WBC 0-2 /hpf (0-5) 09/30/16 19:10 Ur Epithelial Cells RARE /lpf (FEW) 09/30/16 19:10 Amorphous Sediment FEW URATES (NONE SEEN) 09/30/16 19:10 Urine Bacteria FEW /hpf (NONE SEEN) 09/30/16 19:10 Ur Random Sodium 57 mmol/L 10/02/16 11:30 Urine Test NEGATIVE 09/30/16 19:10 - Physical Exam Vitals and I&O: Vital Signs Temp 98.6 F 10/03/16 12:00 Pulse 82 10/03/16 12:00 Resp 18 10/03/16 12:00 BP 101/70 10/03/16 12:00 Pulse Ox 98 10/03/16 12:00 Intake & Output 10/02/16 10/03/16 10/03/16 18:59 06:59 18:59 Intake Total 650 450 Output Total 400 300 Balance 250 -300 450 Weight (lbs) 56.954 kg 56.699 kg 56.699 kg Intake: Oral 650 450 Output: Urine 400 Other 300 Other: # Voids 250 # Bowel Movements 0 0 Active Medications: Current Medications Acetaminophen (Tylenol) 650 mg PO Q6H PRN PRN Reason: FEVER 100.1 OR HIGHER Stop: 11/30/16 00:05 Bacitracin (Baciquent) 1 appl TP DAILY PRN PRN Reason: SKIN INFECTION Stop: 11/29/16 23:53 Benztropine Mesylate (Cogentin) 1 mg PO TID [facility] Stop: 11/30/16 08:59 Last Admin: 10/03/16 09:54 Dose: 1 mg Calcium/Vitamin D (Oscal W/Vitamin D) 1 tab PO TID [facility] Stop: 11/30/16 08:59 Last Admin: 10/03/16 09:54 Dose: 1 tab Chlorpromazine (Thorazine) 50 mg PO BID DIPTI PRN Reason: Protocol Stop: 11/30/16 08:59 Last Admin: 10/03/16 09:53 Dose: 50 mg Clotrimazole (Lotrimin 1% Cream) 1 appl TP BID PRN PRN Reason: skin infection Stop: 11/30/16 08:59 Diphenhydramine HCl (Benadryl) 100 mg PO HS [facility] Stop: 11/30/16 20:59 Last Admin: 10/02/16 21:00 Dose: 100 mg Fluvoxamine Maleate (Luvox) 100 mg PO DAILY DIPTI PRN Reason: Protocol Stop: 11/30/16 20:59 Last Admin: 10/03/16 09:56 Dose: 100 mg Gabapentin (Neurontin) 800 mg PO TID [facility] Stop: 11/30/16 08:59 Last Admin: 10/03/16 10:33 Dose: 800 mg Lactulose (Cephulac) 10 gm PO BID [facility] Stop: 11/30/16 08:59 Last Admin: 10/03/16 09:55 Dose: 10 gm Lamotrigine (Lamictal) 200 mg PO BID DIPTI Stop: 11/30/16 08:59 Last Admin: 10/03/16 09:54 Dose: 200 mg Levothyroxine Sodium (Synthroid) 0.025 mg PO QDAC [facility] Stop: 11/30/16 07:29 Last Admin: 10/03/16 08:00 Dose: 0.025 mg Loperamide HCl (Imodium) 2 mg PO PRN PRN PRN Reason: Loose Stools Stop: 11/30/16 00:06 Lorazepam (Ativan) 1 mg PO HS DIPTI PRN Reason: Protocol Stop: 11/29/16 20:59 Last Admin: 10/02/16 21:00 Dose: 1 mg Mupirocin (Bactroban Oint) 1 appl TP BID DIPTI Stop: 10/07/16 16:59 Last Admin: 10/03/16 09:56 Dose: 1 appl Promethazine HCl/Dextromethorphan (Phenergan Dm 6.25/15mg-5 Ml) 10 ml PO QID PRN PRN Reason: Cough Stop: 11/30/16 00:06 Quetiapine Fumarate (Seroquel) 300 mg PO HS DIPTI PRN Reason: Protocol Stop: 11/30/16 20:59 Last Admin: 10/02/16 21:01 Dose: 300 mg Quetiapine Fumarate (Seroquel) 100 mg PO BID [facility] Stop: 11/30/16 08:59 Last Admin: 10/03/16 09:54 Dose: 100 mg Triamcinolone Acetonide (Kenalog 0.1%) 1 appl TP BID PRN PRN Reason: Rash Stop: 11/30/16 00:06 Vitamin E (Vitamin E) 400 iu PO BID DIPTI Stop: 11/30/16 08:59 Last Admin: 10/03/16 09:54 Dose: 400 iu General: Alert, No acute distress HEENT: Atraumatic, PERRLA, Mucous membr. moist/pink Neck: Supple, +2 carotid pulse wo bruit Cardiovascular: Regular rate, Normal S1, Normal S2 Lungs: Clear to auscultation Abdomen: Bowel sounds, Soft Extremities: no Edema Neurological: Sensation intact Skin: no Rash Psych/Mental Status: Mood NL - Procedures Procedures: Procedures Procedure Code Date CLOSURE SKIN & SUBCUTANEOUS NEC 86.59 09/08/10 RPR F/E/E/N/L/M 2.5 CM/< 96113 09/08/10 Assessment/Plan - Problem List Patient Problems: All Active Problems HYPONATREMIA (120) (Acute) Cerebral palsy (Acute) G80.9 Hyponatremia (Acute) E87.1 INTERMITTANT FOCAL SEIZURES (Acute) Seizure disorder (Acute) G40.909 Twitching (Acute) R25.3 hypokalemia (Acute) mental delay (Acute) toxic metabolic encephalopathy (Acute) uti (Acute) - Assessment Assessment: hyponatremia 2nd to Desmopressin Epilepsy Hypopthyroid Dementia w/ behavior modification - Plan Plan: Lab - Result Diagrams 10/01/16 06:23 10/02/16 05:10 Current Medications Acetaminophen (Tylenol) 650 mg PO Q6H PRN PRN Reason: FEVER 100.1 OR HIGHER Stop: 11/30/16 00:05 Bacitracin (Baciquent) 1 appl TP DAILY PRN PRN Reason: SKIN INFECTION Stop: 11/29/16 23:53 Benztropine Mesylate (Cogentin) 1 mg PO TID DIPTI Stop: 11/30/16 08:59 Last Admin: 10/02/16 09:03 Dose: 1 mg Calcium/Vitamin D (Oscal W/Vitamin D) 1 tab PO TID DIPTI Stop: 11/30/16 08:59 Last Admin: 10/02/16 09:04 Dose: 1 tab Chlorpromazine (Thorazine) 25 mg PO BID DIPTI PRN Reason: Protocol Stop: 11/30/16 08:59 Last Admin: 10/02/16 09:03 Dose: 25 mg Clotrimazole (Lotrimin 1% Cream) 1 appl TP BID PRN PRN Reason: skin infection Stop: 11/30/16 08:59 Diphenhydramine HCl (Benadryl) 100 mg PO HS [facility] Stop: 11/30/16 20:59 Last Admin: 10/01/16 21:38 Dose: 100 mg Fluvoxamine Maleate (Luvox) 100 mg PO DAILY DIPTI PRN Reason: Protocol Stop: 11/30/16 20:59 Last Admin: 10/02/16 09:03 Dose: 100 mg Gabapentin (Neurontin) 800 mg PO TID DIPTI Stop: 11/30/16 08:59 Last Admin: 10/02/16 09:04 Dose: 800 mg Lactulose (Cephulac) 10 gm PO BID DIPTI Stop: 11/30/16 08:59 Last Admin: 10/02/16 09:02 Dose: 10 gm Lamotrigine (Lamictal) 200 mg PO BID DIPTI Stop: 11/30/16 08:59 Last Admin: 10/02/16 09:03 Dose: 200 mg Levothyroxine Sodium (Synthroid) 0.025 mg PO QDAC DIPTI Stop: 11/30/16 07:29 Last Admin: 10/02/16 07:00 Dose: 0.025 mg Loperamide HCl (Imodium) 2 mg PO PRN PRN PRN Reason: Loose Stools Stop: 11/30/16 00:06 Lorazepam (Ativan) 1 mg PO HS DIPTI PRN Reason: Protocol Stop: 11/29/16 20:59 Last Admin: 10/01/16 22:19 Dose: 1 mg Promethazine HCl/Dextromethorphan (Phenergan Dm 6.25/15mg-5 Ml) 10 ml PO QID PRN PRN Reason: Cough Stop: 11/30/16 00:06 Quetiapine Fumarate (Seroquel) 300 mg PO HS DIPTI PRN Reason: Protocol Stop: 11/30/16 20:59 Last Admin: 10/01/16 21:37 Dose: 300 mg Quetiapine Fumarate (Seroquel) 100 mg PO BID DIPTI Stop: 11/30/16 08:59 Triamcinolone Acetonide (Kenalog 0.1%) 1 appl TP BID PRN PRN Reason: Rash Stop: 11/30/16 00:06 Vitamin E (Vitamin E) 400 iu PO BID DIPTI Stop: 11/30/16 08:59 Last Admin: 10/02/16 09:04 Dose: 400 iu Lab - Result Diagrams Na up to 132 Maintiain of IVF Dc'ed Desmopressin f/u electrolytes Sodium level remained stable Possible DC today Nutritional Asmnt/Malnutr-PDOC - Dietary Evaluation Malnutrition Findings (Please click <Entered> for more info): Nutritional Asmnt/Malnutrition Start: 10/01/16 15: 25 Text: Status: Complete Freq: Document 10/01/16 15:25 GSUN (Rec: 10/01/16 15:39 GSUN [email or web address]) Nutritional Asmnt/Malnutrition Patient General Information Nutritional Screening High Risk Screening Diagnosis ER: hyponatremia, dehydration Pertinent Medical Hx/Surgical Hx ER: thyroid disorder, dementia Subjective Information 51 year old female from SNF. Unable to itnerview due to cognition. Pt made eye contact with RD, moving all 4 extremities. Difficult to perform physical assessment due to constant movement and cognition, thin overall, no severe wasting noted. Spoke to BOILER OUT at bedside, BOILER OUT stated pt with great appetite, finished 100% breakfast and lunch, no difficulties noted, meeting nutritional needs. Current Diet Order/ Nutrition Support [facility] soft ground Pertinent Medications Oscal W/Vitamin D, Cephulac, Synthroid, Seroquel, Nacl 0.9% , Vitamin E Pertinent Labs Reviewed. Nutritional Hx/Data Height 1.6 m Height (Calculated Centimeters) 160.0 Current Weight (lbs) 58.423 kg Weight (Calculated Kilograms) 58.4 Weight (Calculated Grams) 02958.7 [place] Body Weight 115 Weight Status Approriate GI Symptoms Food Allergies No Skin Integrity/Comment: Walter 15. Right finger open wound from pt biting. Current %PO Good (75-100%) Estimated Nutritional Goals BEE in Kcals: Using Current wt Calories/Kcals/Kg CBW 128.8lb/58.5kg Kcals Calculated 1463-1755kcal (25-30kcal/kg) Protein: Using Current wt Protein Calculated 47-59g (0.8-1g/kg) Fluid: ml 1463-1755ml (1ml/kcal) Nutritional Problem 1. Problem Problem No nutritional problem at this time. Intervention/Recommendation Comments 1. Continue with current diet order. Avg PO intake is adequate. Expected Outcomes/Goals Expected Outcomes/Goals 1. PO intake conitnue to meet at least 75% of estimated nutritional needs.
== END 2016-10-03 12:55 | disposition short-term general hospital (02) | DRG 641 ==
LOC: ER 17:47 → MSI 20:08 → TELE 10-01 04:57 → MSI 10-01 11:37
PROVIDERS: ADMIT Internal Medicine; ATTEND Internal Medicine
DX: E87.1 Hypo-osmolality and hyponatremia (principal); E86.0 Dehydration; F03.91 Unspecified dementia, unspecified severity, with behavioral disturbance; K52.9 Noninfective gastroenteritis and colitis, unspecified; G40.909 Epilepsy, unspecified, not intractable, without status epilepticus; R32 Unspecified urinary incontinence; T38.895A Adverse effect of other hormones and synthetic substitutes, initial encounter; G80.9 Cerebral palsy, unspecified; G62.9 Polyneuropathy, unspecified; E03.9 Hypothyroidism, unspecified; F29 Unspecified psychosis not due to a substance or known physiological condition; Y92.89 Other specified places as the place of occurrence of the external cause; Z91.018 Allergy to other foods; Z91.048 Other nonmedicinal substance allergy status; Z79.899 Other long term (current) drug therapy
CPT/HCPCS: 36415-UA; 80048-TC; 80053-TC; 80061-TC; 81001-TC; 81025-TC; 83930-90; 84300-TC; 84443-TC; 84550-TC; 85025-TC; 85610-TC; 87086-90; J7030; J7040; Q0161; Z7610

== ENCOUNTER 2017-06-16 17:53 | Inpatient (IN) | payer MEDICARE, MEDICAID ==
--- NOTE | 2017-06-16 18:01 | ED Physician Chart ---
ED Chief Complaint/HPI - Patient Information Date Seen:: 06/16/17 Time Seen:: 17:59 Chief Complaint:: Seizures History of Present Illness:: 52 yo female with history of cerebral palsy and seizure disorder treated with lamictal and gabapentin, had focal [facility]. She was brought by BLS to ER for evaluation. No recent trauma. Allergies:: Allergies Allergy/AdvReac Type Severity Reaction Status Date / Time cats Allergy Unknown UNKNOWN Uncoded 06/25/16 19:53 caraballo tomatoes Allergy Unknown UNKNOWN Uncoded 06/25/16 19:53 weeds Allergy Unknown UNKNOWN Uncoded 06/25/16 19:53 ED Past Medical History - Past Medical History Past Medical History: Seizures, Other (cerebral palsy, intellectual disability) Social History: Non Smoker, No Alcohol, No Drug Use Surgical History: other (clavicular fracture) Psychiatricy History: Schizophrenia, Other (OCD, psychosis, autism) Family Medical History - Family Member Mother History Unknown: Yes Ethnicity: Non- Living Status: Unknown
[2017-06-16 18:34] LABS: % BASOPHILS 0.8 % (0.0-2.0); % EOSINOPHILS 2.3 % (0.0-5.0); % LYMPHOCYTES 30.8 % (20.0-50.0); % MONOCYTES 7.1 % (2.0-10.0); EOSINOPHILE ABSOLUTE 0.1 Th/cmm (0.1-0.4); HEMATOCRIT 43.7 % (41.0-60); HEMOGLOBIN 14.6 gm/dL (12-16); LYMPHOCYTE ABSOLUTE 1.7 Th/cmm (1.5-3.0); MEAN CELL VOLUME 102.1 fl (81-100); MEAN CORPUSCULAR HEMOGLOBIN 34.1 pg (27.0-31.0); MEAN CORPUSCULAR HGB CONC 33.4 pg (28.0-36.0); MEAN PLATELET VOLUME 8.4 fl; MONOCYTE ABSOLUTE 0.4 Th/cmm (0.3-1.0); NEUTROPHILE ABSOLUTE 3.4 Th/cmm (1.8-8.0); PLATELET COUNT 174 Th/cmm (150-400); RED BLOOD COUNT 4.28 Mil/cmm (3.80-5.10); RED CELL DISTRIBUTION WIDTH 11.9 % (11.5-20.0); WHITE BLOOD COUNT 5.6 Th/cmm (4.8-10.8)
[2017-06-16 18:50] LABS: ALB/GLOB RATIO 1.5 (1.0-1.8); ALBUMIN 4.4 gm/dL (3.7-5.3); ALKALINE PHOSPHATASE 77 U/L (34-104); ANION GAP 11.1 (7.0-16.0); BILIRUBIN,TOTAL 0.5 mg/dL (0.3-1.0); BUN - UREA NITROGEN 30 mg/dL (7-25); CALCIUM SERUM 9.7 mg/dL (8.6-10.3); CARBON DIOXIDE 27.6 mEq/L (21.0-31.0); CHLORIDE 103 mEq/L (98-107); CREATININE - SERUM 0.8 mg/dL (0.6-1.2); GFR AFRICAN-AMERICAN > 60.0 ml/min (>90); GFR NON AFRICAN-AMERICAN > 60.0 ml/min; GLUCOSE 97 mg/dL (70-105); POTASSIUM SERUM 3.7 mEq/L (3.5-5.1); SGOT 27 U/L (13-39); SGPT/ALT 35 U/L (7-52); SODIUM SERUM 138 mEq/L (136-145); TOTAL PROTEIN,SERUM 7.4 gm/dL (6.0-8.3)
[2017-06-17] MEDS: D5-0.45NS 1,000 ML IV SCH ×2 (02:08→17:40)
[2017-06-17 05:34] LABS: % BASOPHILS 0.4 % (0.0-2.0); % EOSINOPHILS 3.9 % (0.0-5.0); % LYMPHOCYTES 35.1 % (20.0-50.0); % MONOCYTES 9.4 % (2.0-10.0); % NEUTROPHILS 51.2 % (40.0-80.0); EOSINOPHILE ABSOLUTE 0.2 Th/cmm (0.1-0.4); HEMATOCRIT 40.9 % (41.0-60); HEMOGLOBIN 13.7 gm/dL (12-16); LYMPHOCYTE ABSOLUTE 1.9 Th/cmm (1.5-3.0); MEAN CELL VOLUME 101.6 fl (81-100); MEAN CORPUSCULAR HEMOGLOBIN 34.1 pg (27.0-31.0); MEAN CORPUSCULAR HGB CONC 33.6 pg (28.0-36.0); MEAN PLATELET VOLUME 8.4 fl; MONOCYTE ABSOLUTE 0.5 Th/cmm (0.3-1.0); NEUTROPHILE ABSOLUTE 2.9 Th/cmm (1.8-8.0); PLATELET COUNT 168 Th/cmm (150-400); RED BLOOD COUNT 4.02 Mil/cmm (3.80-5.10); RED CELL DISTRIBUTION WIDTH 11.5 % (11.5-20.0); WHITE BLOOD COUNT 5.5 Th/cmm (4.8-10.8)
[2017-06-17 05:55] LABS: ANION GAP 8.1 (7.0-16.0); BUN - UREA NITROGEN 26 mg/dL (7-25); CALCIUM SERUM 9.3 mg/dL (8.6-10.3); CARBON DIOXIDE 29.4 mEq/L (21.0-31.0); CHLORIDE 105 mEq/L (98-107); CREATININE - SERUM 0.7 mg/dL (0.6-1.2); GFR AFRICAN-AMERICAN > 60.0 ml/min (>90); GFR NON AFRICAN-AMERICAN > 60.0 ml/min; GLUCOSE 80 mg/dL (70-105); POTASSIUM SERUM 3.5 mEq/L (3.5-5.1); SODIUM SERUM 139 mEq/L (136-145)
[2017-06-17 07:51] LABS: URINE MICROSCOPIC INDICATED? YES; URINE SOURCE CATH
[2017-06-17 08:04] LABS: URINE BILIRUBIN NEGATIVE (NEGATIVE); URINE BLOOD NEGATIVE (NEGATIVE); URINE GLUCOSE (UA) NEGATIVE (NEGATIVE); URINE KETONE NEGATIVE (NEGATIVE); URINE LEUKOCYTE ESTERASE NEGATIVE (NEGATIVE); URINE NITRATE NEGATIVE (NEGATIVE); URINE PH 6.5 (4.6 - 8.0); URINE PROTEIN NEGATIVE (NEGATIVE); URINE UROBILINOGEN 0.2 E.U./dL (0.2 - 1.0)
[2017-06-17 08:11] LABS: URINE CLARITY CLEAR (CLEAR); URINE COLOR YELLOW
[2017-06-17 08:12] LABS: URINE BACTERIA OCCASIONAL /hpf (NONE SEEN); URINE EPITHELIAL CELLS OCCASIONAL /lpf (FEW); URINE WBC 0-2 /hpf (0-5)
--- NOTE | 2017-06-17 08:29 | Diagnostic Imaging Report ---
Portable chest x-ray HISTORY: Shortness of breath Patient is very rotated. There is a poor inspiration. Allowing for this factor, no focal pulmonary processes are seen. Incidentally noted is stool-filled somewhat distended colon. IMPRESSION: 1. Poor inspiration with no definite focal pulmonary processes 2. Distended stool-filled large bowel
[2017-06-17] MEDS ORDERED: Promethazine DM 6.25/15mg-5mL 5 ML SYR PO PRN (19:51)
[2017-06-17] MEDS ORDERED: Non-Formulary Item 1 EA (Oxybenzone/Padimate O [Sunscreen Spf8 Lotion] 120 ML) TP PRN (19:51)
[2017-06-17] MEDS ORDERED: FLUVOXAMINE MALEATE 100 MG PO SCH (21:00)
[2017-06-17] MEDS: Benztropine 1 MG TAB PO SCH (23:01)
[2017-06-18] MEDS: Levothyroxine 0.025 Mg Tab PO SCH (06:45)
[2017-06-18] MEDS ORDERED: LAMOTRIGINE 200 MG PO SCH (09:00)
[2017-06-18] MEDS: Benztropine 1 MG TAB PO SCH ×3 (09:14→20:50)
[2017-06-18] MEDS: Multivitamin w/ Minerals Tab PO SCH (09:14)
[2017-06-18] MEDS: Lactulose 10 Gm/15 mL 30mL UDC PO SCH ×2 (09:14→17:14)
[2017-06-18] MEDS: Betamethasone/Clotrimazole Cream 15 gm Tube TP SCH ×2 (09:21→17:20)
--- NOTE | 2017-06-18 16:23 | History and Physical ---
History of Present Illness - HPI Chief Complaint: Seizures HPI: This is a 52 year old female who is a board and care resident admitted due to focal seizures this morning. Vital Signs: Last Vital Signs Temp 97.2 F 06/18/17 16:00 Pulse 112 06/18/17 16:00 Resp 18 06/18/17 16:00 BP 112/76 06/18/17 16:00 Pulse Ox 90 06/18/17 12:15 Past Medical History Other History: seizure cerebral palsy Family Medical History - Family Member Mother History Unknown: Yes Ethnicity: Unknown Living Status: Unknown Hx Family Cancer: (UNKNOWN) Hx Family Coronary Artery Disease: (UNKNOWN) Hx Family Congestive Heart Failure: (UNKNOWN) Hx Family Hypertension: (UNKNOWN) Hx Family Stroke: (UNKNOWN) Hx Family Diabetes: (UNKNOWN) Hx Family Seizures: (UNKNOWN) Hx Family Dementia: (UNKNOWN) Hx Family AIDS: (UNKNOWN) Hx Family COPD: (UNKNOWN) Hx Family Hepatitis: (UNKNOWN) Hx Family Psychiatric Problems: (UNKNOWN) Hx Family Tuberculosis: (UNKNOWN) Other Medical History: UNKNOWN Social History Smoke: No Alcohol: None Drugs: None Lives: Custodial - Medications Home Medications: Home Medication Medication Instructions Recorded Type Benztropine [Cogentin*] 1 mg PO TID 07/15/15 History Diphenhydramine HCL [Benadryl] 100 mg PO HS 07/15/15 History Fluvoxamine Maleate [Fluvoxamine 100 mg PO HS 07/15/15 History Maleate ER] Gabapentin [Neurontin*] 800 mg PO TID 07/15/15 History Lamotrigine [Lamictal*] 200 mg PO BID 07/15/15 History QUEtiapine Fumarate [SEROquel] 100 mg PO BID 07/15/15 History Vitamin E 400 iu PO BID 07/15/15 History chlorproMAZINE [Thorazine] 25 mg PO BID 07/15/15 History Levothyroxine [Synthroid] 0.025 mg PO QDAC 06/11/16 History Lorazepam 1 mg PO HS 06/11/16 History Multivitamin w/ Minerals 1 tab PO DAILY 06/11/16 History [Theragran M] Lactulose 15 ml PO BID 06/25/16 History QUEtiapine Fumarate [SEROquel] 300 mg PO HS 06/25/16 History Acetaminophen [Acetaminophen ER] 650 mg PO Q6H PRN 09/30/16 History Loperamide [Imodium] 2 mg PO PRN PRN 09/30/16 History Promethazine DM 6.25/15mg-5mL 2 tsp PO QID PRN 09/30/16 History [Phenergan DM 6.25/15mg-5 mL] Mupirocin Oint [Mupirocin*] 1 appl TP BID appl 10/03/16 Rx Calcium Carbonate [Oyster Shell 500 mg PO TID 06/16/17 History Calcium] Clotrimazole/Betamethasone Dip 1 cre TP BID 06/16/17 History [Clotrimazole-Betamethasone 0.05%*] Collagenase Clostridium Hist. 1 appl TP DAILY 06/16/17 History [Santyl] Diphenhydramine HCL [Benadryl] 25 mg PO Q6H PRN 06/16/17 History Doxycycline Hyclate 100 mg PO BID 06/16/17 History Nystatin/Triamcin 1 applic TP BID 06/16/17 History [Nystatin-Triamcinolone Cream] Oxybenzone/Padimate O [Sunscreen 120 ml TP PRN PRN 06/16/17 History Spf8 Lotion] - Allergies Allergies/Adverse Reactions: Allergies Allergy/AdvReac Type Severity Reaction Status Date / Time cats Allergy Unknown UNKNOWN Uncoded 06/25/16 19:53 caraballo tomatoes Allergy Unknown UNKNOWN Uncoded 06/25/16 19:53 weeds Allergy Unknown UNKNOWN Uncoded 06/25/16 19:53 Review of Systems - Review of Systems Constitutional: Report: No Significant, Weakness Eyes: Report: No Significant ENT: Report: No Significant Respiratory: Report: No Significant Cardiovascular: Report: No Significant Gastrointestinal: Report: No Significant Neurological: Report: Weakness Physical Exam - Physical Exam HEENT: Report: Ears Nose Throat within normal limits Neck: Report: Within normal limits Cardiovascular Systems: Report: +s1/s2 noted, Regular, Rate and Rhythm Respiratory: Report: Breath Sounds are within normal limits Abdomen: Report: Non-tender to palpation Back: Report: Inspection of back is within normal limits. Extremities: Report: Non-tender to palpation. Skin: Report: Color of skin is within normal limits Neuro/Psych: Report: Mood affect is within normal limits - Lab Results All Lab Results last 24 hours: Microbiology 06/17/17 00:00 - Final Nares NO MRSA ISOLATED - Assessment Assessment: Current Active Problems Problem Status Onset FOCAL-TYPE SEIZURE Acute cerebral palsy - Plan Plan: neuro consult seizure precautions fall precautions continue current orders
--- NOTE | 2017-06-18 23:56 | Consultation ---
DATE OF CONSULTATION: 06/18/2017 NEUROLOGY CONSULT HISTORY OF PRESENT ILLNESS: The patient is a 52-year-old. Apparently, she is in a board and care. The patient has focal seizure. The patient has no seizure while she is here. She is on multiple medications as per reconciliation. For the seizure she is on Lamictal 200 mg b.i.d. She has a history of psychosis, on multiple medications for that. ALLERGIES: None known. SOCIAL HISTORY: In a facility. The patient with cerebral palsy. Focal seizures. No speech at the moment for me. MEDICATIONS: Per reconciliation. PHYSICAL EXAMINATION: VITAL SIGNS: 98.2, blood pressure 130/70, pulse is 74. NECK: Supple. No neck bruits. HEART: Sounds S1, S2. LUNGS: Clear. NEUROLOGIC: The patient is awake, alert. She is moving her extremities. She does not follow instructions. 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 Pupils are reactive. We will withdraw lower extremity. ASSESSMENT: 1. The patient with seizures. 2. Mental retardation. 3. Cerebral palsy. The patient continue present medications. The patient psychiatric consult. The patient's CT scans at the moment is difficult to do with the patient's cooperation even despite lot of medication. JOB# [id number]
--- NOTE | 2017-06-19 08:28 | Consultation ---
DATE OF CONSULTATION: 06/19/2017 PATIENT'S AGE: 52. SEX: Female. PHYSICIAN: Jyotsna Hackett MD SERVICE MANAGER: Neo Martinez MD TYPE OF THE REPORT: Psychiatric consult. REASON FOR THE CONSULT: Agitation. HISTORY OF PRESENT ILLNESS: The patient with a history of psychosis. The patient was admitted to the hospital and she has been agitated and restless and in irritable mood. The patient also has been taking off her clothes and she has been having difficulty following any of the staff directions. Also, during my interview, the patient was confused and she was not able to answer any of my questions and kept trying to take her clothes in spite of the staff was trying to keep her dressed. The patient has history of what seems to be schizophrenia and psychosis. She has been taking Seroquel and also has been taking Lamictal, and Thorazine. PAST PSYCHIATRIC HISTORY: The patient has history of psychosis and has receiving Lamictal, Seroquel and Thorazine. PAST MEDICAL HISTORY: As per Dr. Hackett. SOCIAL HISTORY: The patient lives in a penitentiary in the [facility]. No known alcohol or street drug use. MENTAL STATUS EXAM: The patient appears older than stated age. Disheveled. Restless. Irritable mood. Thought processes are circumstantial with occasional flight of ideas. The patient denies any hallucinations or delusions. She did actively responding to stimuli and she was not able to answer any of the questions because of her agitation and confusion. The patient is alert, but seems to be disoriented to time, place, person, and situation. Unable to assess her memory because of her agitation and confusion. ASSESSMENT AND PRIMARY DIAGNOSIS: Chronic paranoid schizophrenia with acute exacerbation. TREATMENT PLAN: We will monitor the patient's behavior and condition closely. We will start individual as well as milieu psychotherapy and we will continue psychotropic medications and we will adjust the dose. Thanks to Dr. Hackett and will follow up with you. JOB# [id number]
[2017-06-19] MEDS: Benztropine 1 MG TAB PO SCH ×2 (08:54→16:05)
[2017-06-19] MEDS: Lactulose 10 Gm/15 mL 30mL UDC PO SCH ×2 (08:55→16:14)
[2017-06-19] MEDS: Levothyroxine 0.025 Mg Tab PO SCH (08:55)
[2017-06-19] MEDS: Multivitamin w/ Minerals Tab PO SCH (08:55)
[2017-06-19] MEDS: Betamethasone/Clotrimazole Cream 15 gm Tube TP SCH ×2 (08:56→16:09)
--- NOTE | 2017-06-19 09:32 | General Progress Note ---
Subjective - Review of Systems Events since last encounter: patient with irritable mood in no distress Objective - Results Result Diagrams: 06/17/17 05:00 06/17/17 05:00 Recent Labs: Laboratory Last Values WBC 5.5 Th/cmm (4.8-10.8) 06/17/17 05:00 RBC 4.02 Mil/cmm (3.80-5.10) 06/17/17 05:00 Hgb 13.7 gm/dL (12-16) 06/17/17 05:00 Hct 40.9 % (41.0-60) L 06/17/17 05:00 MCV 101.6 fl (81-100) H 06/17/17 05:00 MCH 34.1 pg (27.0-31.0) H 06/17/17 05:00 MCHC Differential 33.6 pg (28.0-36.0) 06/17/17 05:00 RDW 11.5 % (11.5-20.0) 06/17/17 05:00 Plt Count 168 Th/cmm (150-400) 06/17/17 05:00 MPV 8.4 fl 06/17/17 05:00 Neutrophils % 51.2 % (40.0-80.0) 06/17/17 05:00 Lymphocytes % 35.1 % (20.0-50.0) 06/17/17 05:00 Monocytes % 9.4 % (2.0-10.0) 06/17/17 05:00 Eosinophils % 3.9 % (0.0-5.0) 06/17/17 05:00 Basophils % 0.4 % (0.0-2.0) 06/17/17 05:00 Sodium 139 mEq/L (136-145) 06/17/17 05:00 Potassium 3.5 mEq/L (3.5-5.1) 06/17/17 05:00 Chloride 105 mEq/L (98-107) 06/17/17 05:00 Carbon Dioxide 29.4 mEq/L (21.0-31.0) 06/17/17 05:00 Anion Gap 8.1 (7.0-16.0) 06/17/17 05:00 BUN 26 mg/dL (7-25) H 06/17/17 05:00 Creatinine 0.7 mg/dL (0.6-1.2) 06/17/17 05:00 Est GFR ( Amer) > 60.0 ml/min (>90) 06/17/17 05:00 Est GFR (Non-Af Amer) > 60.0 ml/min 06/17/17 05:00 BUN/Creatinine Ratio 37.1 06/17/17 05:00 Glucose 80 mg/dL (70-105) 06/17/17 05:00 Calcium 9.3 mg/dL (8.6-10.3) 06/17/17 05:00 Total Bilirubin 0.5 mg/dL (0.3-1.0) 06/16/17 18:04 AST 27 U/L (13-39) 06/16/17 18:04 ALT 35 U/L (7-52) 06/16/17 18:04 Alkaline Phosphatase 77 U/L (34-104) 06/16/17 18:04 Total Protein 7.4 gm/dL (6.0-8.3) 06/16/17 18:04 Albumin 4.4 gm/dL (3.7-5.3) 06/16/17 18:04 Globulin 3.0 gm/dL 06/16/17 18:04 Albumin/Globulin Ratio 1.5 (1.0-1.8) 06/16/17 18:04 Urine Source CATH 06/17/17 07:45 Urine Color YELLOW 06/17/17 07:45 Urine Clarity CLEAR (CLEAR) 06/17/17 07:45 Urine pH 6.5 (4.6 - 8.0) 06/17/17 07:45 Ur Specific [place] 1.015 (1.005-1.030) 06/17/17 07:45 Urine Protein NEGATIVE mg/dL (NEGATIVE) 06/17/17 07:45 Urine Glucose (UA) NEGATIVE mg/dL (NEGATIVE) 06/17/17 07:45 Urine Ketones NEGATIVE mg/dL (NEGATIVE) 06/17/17 07:45 Urine Blood NEGATIVE (NEGATIVE) 06/17/17 07:45 Urine Nitrate NEGATIVE (NEGATIVE) 06/17/17 07:45 Urine Bilirubin NEGATIVE (NEGATIVE) 06/17/17 07:45 Urine Urobilinogen 0.2 E.U./dL (0.2 - 1.0) 06/17/17 07:45 Ur Leukocyte Esterase NEGATIVE (NEGATIVE) 06/17/17 07:45 Urine WBC 0-2 /hpf (0-5) 06/17/17 07:45 Ur Epithelial Cells OCCASIONAL /lpf (FEW) 06/17/17 07:45 Urine Bacteria OCCASIONAL /hpf (NONE SEEN) 06/17/17 07:45 - Physical Exam Vitals and I&O: Vital Signs Temp 97.5 F 06/19/17 04:00 Pulse 92 06/19/17 04:00 Resp 18 06/19/17 04:00 BP 110/75 06/19/17 04:00 Pulse Ox 94 06/19/17 04:00 Intake & Output 06/18/17 06/19/17 06/19/17 18:59 06:59 18:59 Intake Total 200 400 Balance 200 400 Weight (lbs) 73.936 kg 73.936 kg Intake: Oral 200 400 Other: # Voids 3 # Bowel Movements 1 Active Medications: Current Medications Acetaminophen (Tylenol) 650 mg PO Q6H PRN PRN Reason: FEVER 100.1 OR HIGHER Benztropine Mesylate (Cogentin) 1 mg PO TID [facility] Stop: 08/16/17 20:59 Last Admin: 06/19/17 08:54 Dose: 1 mg Betamethasone/Clotrimazole (Lotrisone Cream) 1 appl TP BID [facility] Stop: 08/17/17 08:59 Last Admin: 06/19/17 08:56 Dose: 1 appl Calcium Carbonate (Os-Raciel) 500 mg PO TID [facility] Stop: 08/16/17 20:59 Last Admin: 06/19/17 08:55 Dose: 500 mg Chlorpromazine (Thorazine) 25 mg PO BID [facility] PRN Reason: Protocol Stop: 08/17/17 08:59 Last Admin: 06/19/17 08:55 Dose: 25 mg Diphenhydramine HCl (Benadryl) 25 mg PO Q6H PRN PRN Reason: ALLERGIES Stop: 08/16/17 19:50 Diphenhydramine HCl (Benadryl) 100 mg PO HS [facility] Stop: 08/16/17 20:59 Last Admin: 06/18/17 20:50 Dose: 100 mg Doxycycline Hyclate (Vibramycin) 100 mg PO BID [facility] Stop: 08/17/17 08:59 Last Admin: 06/19/17 08:54 Dose: 100 mg Gabapentin (Neurontin) 800 mg PO TID [facility] Stop: 08/16/17 20:59 Last Admin: 06/19/17 08:54 Dose: 800 mg Dextrose/Sodium Chloride (D5-0.45ns) 1,000 mls @ 75 mls/hr IV .[id number] [facility] Stop: 08/16/17 01:25 Last Admin: 06/17/17 17:40 Dose: Not Given Lactulose (Cephulac) 10 gm PO BID [facility] Stop: 08/17/17 08:59 Last Admin: 06/19/17 08:55 Dose: 10 gm Lamotrigine (Lamictal) 200 mg PO BID [facility] Stop: 08/17/17 16:59 Last Admin: 06/19/17 08:54 Dose: 200 mg Levothyroxine Sodium (Synthroid) 0.025 mg PO QDAC [facility] Stop: 08/17/17 07:29 Last Admin: 06/19/17 08:55 Dose: 0.025 mg Loperamide HCl (Imodium) 2 mg PO PRN PRN PRN Reason: Loose Stools Stop: 08/16/17 19:50 Lorazepam (Ativan) 1 mg IVP Q6HR PRN; Protocol PRN Reason: SEIZURE Stop: 08/16/17 01:25 Last Admin: 06/18/17 14:55 Dose: 1 mg Miscellaneous (Collagenase Clostridium Hist. [Santyl]) 1 appl TP DAILY [facility] Stop: 08/17/17 08:59 Miscellaneous (Fluvoxamine Maleate [Fluvoxamine Maleate Er]) 100 mg PO HS [facility] Stop: 08/16/17 20:59 Mupirocin (Bactroban Oint) 1 appl TP BID [facility] Stop: 08/17/17 08:59 Last Admin: 06/19/17 08:56 Dose: 1 appl Nystatin/Triamcinolone Acetonide (Mycolog Ii Cream) 1 appl TP BID [facility] Stop: 08/17/17 08:59 Last Admin: 06/18/17 17:20 Dose: Not Given Promethazine HCl/Dextromethorphan (Phenergan Dm 6.25/15mg-5 Ml) 10 ml PO QID PRN PRN Reason: Cough Stop: 08/16/17 19:50 Quetiapine Fumarate (Seroquel) 100 mg PO BID [facility] PRN Reason: Protocol Stop: 08/17/17 08:59 Quetiapine Fumarate (Seroquel) 300 mg PO HS [facility] PRN Reason: Protocol Stop: 08/16/17 20:59 Vitamin E (Vitamin E) 400 iu PO BID [facility] Stop: 08/17/17 08:59 Last Admin: 06/19/17 08:55 Dose: 400 iu - Procedures Procedures: Procedures Procedure Code Date CLOSURE SKIN & SUBCUTANEOUS NEC 86.59 09/08/10 RPR F/E/E/N/L/M 2.5 CM/< 04844 09/08/10 Assessment/Plan - Problem List Patient Problems: All Active Problems FOCAL-TYPE SEIZURE (Acute)
[2017-06-19] MEDS ORDERED: Venelex 60gm Tube TP SCH (13:00)
--- NOTE | 2017-06-22 02:39 | Discharge Summary ---
DATE OF DISCHARGE: 06/19/2017 HOSPITAL COURSE: The patient was admitted on 06/16 and the patient was discharged on 06/19. The patient was admitted because of aggressive behavior with history of psychosis and also rule out sepsis, rule out urinary tract infection and the patient was treated with a prior history of seizures, history of cerebral palsy. The patient was treated with antipsychotics. Dr. Martinez saw the patient and the patient improved and the patient was in stable condition. The patient's final diagnoses was status post acute exacerbation of psychosis, improved; history of seizures, history of mental delay and the patient was sent back to board and care where I will follow the patient. CONDITION AT THE TIME OF DISCHARGE: Stable. [facility]# [id number]
== END 2017-06-19 18:30 | disposition home or self-care (01) | DRG 101 ==
LOC: ER 17:53 → TELE 23:10 → MSI 06-17 14:58
PROVIDERS: ADMIT Internal Medicine; ATTEND Internal Medicine
DX: G40.802 Other epilepsy, not intractable, without status epilepticus (principal); G80.9 Cerebral palsy, unspecified; F20.0 Paranoid schizophrenia; F79 Unspecified intellectual disabilities; Z91.018 Allergy to other foods; Z91.09 Other allergy status, other than to drugs and biological substances
CPT/HCPCS: 36415-UA; 71045-TC; 80048-TC; 80053-TC; 80299-90; 81001-TC; 85025-TC; 93005; 96374; J2060; Q0161; Z7610